=== PATIENT | male | born 1955 | race Caucasian/White ===

== ENCOUNTER 2017-11-06 10:22 | Emergency (ER) | payer MEDICARE, SELFPAY ==
[2017-11-06 10:29] VITALS: BP 146/82; PULSE 98; RESP 22; TEMP 36.5; O2SAT 97; BMI 27.1
--- NOTE | 2017-11-06 11:09 | HMH.EDEAR ---
ED Disposition Clinical Impression: Otitis media Disposition: Home, Self-Care Condition on Discharge: Good Instructions: DI for Middle Ear Infection-Adult Prescriptions: Amoxicillin [Amoxicillin 500mg Tab] 500 mg PO TID #30 tab Referrals: Provider,Referral, [Primary Care Provider] - - Critical Care Critical Care Time: No Attestation: On 11/06/17, the high probability of a clinically significant, sudden or life threatening deterioration of the following system(s) required my full and direct attention, intervention and personal management. The time I documented below is in addition to time spent performing reported procedures but includes the following listed in this critical care notation. Medical Decision Making - Medical Records Medical records reviewed: Yes: I reviewed the patient's medical records. Vital Signs: 11/06/17 10:29 Temperature 97.7 F Temperature Source Oral Pulse Rate [Right Brachial] 98 H Respiratory Rate 22 Blood Pressure [Right Arm] 146/82 Blood Pressure Mean [Right Arm] 103 Blood Pressure Source [Right Arm] Automatic Cuff Blood Pressure Position [Right Arm] Sitting 02 Sat by Pulse Oximetry 97 Oxygen Delivery Method Room Air - Lab Data Lab results reviewed: Yes: I reviewed the patient's lab results. Lab Results 11/06/17 10:40: Influenza Type A Ag Negative, Influenza Type B Ag Negative - Hussain Inquiry Pt receiving controlled substance: No Ear HPI - General Chief complaint: Ear Stated complaint: ear pain Time Seen by Provider: 11/06/17 11:15 Mode of Arrival: Ambulatory Source of Information: Patient Limitations: No Limitations Description of Symptoms (Recalled from ER Triage Doc. by RN): lt ear pain which has lead to a loss of hearing in that ear, congestion, cough - History of Present Illness HPI Narrative: has experienced intense ear fullness for the past 2 days without any vomiting. He is having difficulty hearing out of his left ear. Complaint: ear pain Location: left ear Duration: constant Severity: mild Relieving factors: nothing Exacerbating factors: position of head Discharge from ear: no Associated symptoms ear: decreased hearing Treatment prior to arrival: none - Related Data Previous Rx's Medication Instructions Recorded Amoxicillin [Amoxicillin 500mg Tab] 500 mg PO TID #30 tab 11/06/17 Allergies Allergy/AdvReac Type Severity Reaction Status Date / Time No Known Allergies Allergy Unverified 10/06/17 14:27 [facility] History Medical History: Reports:: Internal Pacemaker Denies:: Cancer, Diabetes Mellitus Type 1, MRSA Other Surgeries: Yes: Pacemaker Amputation: No - *Social History Smoking Status: Current every day smoker Tobacco Type: cigarettes Alcohol Intake: never - Psychiatric History Expresses thoughts of harming self/others: None Suicide Plan Description: No Plan ROS Obtained: Yes All systems reviewed & no additional complaints Physical Exam - General General appearance: alert, in no apparent distress - Head Head exam: atraumatic, normocephalic, normal inspection - Eye Eye exam: Present: normal appearance, PERRL, EOMI - ENT ENT exam: Present: mucous membranes moist, mucous membranes dry, normal external ear exam, other (Bulging on left. cloudy and full on right with no drainage.) - Neck Neck exam: Present: normal inspection, full ROM, trachea midline. Absent: tenderness, meningismus, lymphadenopathy - Respiratory Respiratory exam: Present: normal lung sounds bilaterally, other (Occasional dry cough). Absent: respiratory distress - Cardiovascular Cardiovascular exam: Present: regular rate, normal rhythm. Absent: JVD - Abdominal Exam Abdominal exam: Present: soft, normal bowel sounds. Absent: distention, tenderness, guarding - Extremities Exam Extremities exam: Present: full ROM - Neurological Exam Neurological exam: Present: alert, oriented X3, normal gait, other (Decreased hearing, abnorma
[2017-11-06 12:09] VITALS: BP 146/82; PULSE 94; RESP 20; TEMP 36.9; O2SAT 99
== END 2017-11-06 12:00 | disposition home or self-care (01) ==
PROVIDERS: Emergency Provider Emergency Medicine
DX: H66.92 Otitis media, unspecified, left ear (principal); F17.210 Nicotine dependence, cigarettes, uncomplicated; Z95.0 Presence of cardiac pacemaker
CPT/HCPCS: 87275; 87276; 99282

== ENCOUNTER 2018-01-11 14:48 | Emergency (ER) | payer MEDICARE, SELFPAY ==
[2018-01-11 15:02] VITALS: BP 137/81; PULSE 105; RESP 20; TEMP 36.9; O2SAT 100; BMI 27.8
--- NOTE | 2018-01-11 15:31 | HMH.EDGENADL ---
ED Disposition Clinical Impression: Otitis media Qualifiers: Otitis media type: unspecified Chronicity: acute Qualified Code(s): H66.90 - Otitis media, unspecified, unspecified ear Bilateral otitis externa Qualifiers: Otitis externa type: unspecified type Chronicity: acute Qualified Code(s): H60.503 - Unspecified acute noninfective otitis externa, bilateral BPH (benign prostatic hyperplasia) Qualifiers: Lower urinary tract symptom presence: symptoms present Lower urinary tract symptom detail: unspecified Qualified Code(s): N40.1 - Benign prostatic hyperplasia with lower urinary tract symptoms Disposition: Home, Self-Care Condition on Discharge: Good Instructions: DI for Otitis Externa, DI for Otitis Media (Middle Ear Infection)-Child Additional Instructions: Please take the medications prescribed per directions, follow-up with 1 of the ENT specialists (Jovany or Fan), as well as one of the urologists (Brendon or Jacey) within the next 1-2 days for additional evaluation. Prescriptions: Amoxicillin/Potassium Clav [Augmentin 875-125 Tablet] 1 tab PO Q12H #20 tab Neomycin/Polymyxin B/Hydrocort [Yawrkiih-Urxlwdnlf-Jr Ear Soln] 2 drops OT QID #1 solution Oxycodone HCl/Acetaminophen [Percocet 10-325 mg Tab] 1 tab PO QIDP PRN #8 tab PRN Reason: Moderate Pain Tamsulosin HCl [Flomax 0.4mg capsule] 0.4 mg PO DAILY #30 cap.er.24h Referrals: Colleen Chavira MD [Consulting Physician] - Jesus Manzo MD [Staff Physician] - Harry Olivas MD [Staff Physician] - Elijah Mari MD [Staff Physician] - Time of Disposition: 17:00 - Critical Care Critical Care Time: No Attestation: On 01/11/18, the high probability of a clinically significant, sudden or life threatening deterioration of the following system(s) required my full and direct attention, intervention and personal management. The time I documented below is in addition to time spent performing reported procedures but includes the following listed in this critical care notation. Medical Decision Making - Medical Records Medical records reviewed: Yes: I reviewed the patient's medical records. - Hussain Inquiry Pt receiving controlled substance: No Vital Signs: 01/11/18 15:02 01/11/18 17:01 01/11/18 18:22 Temperature 98.5 F 99.2 F 99.2 F Temperature Source Oral Oral Pulse Rate 93 H Pulse Rate [Right Radial] 105 H 93 H Respiratory Rate 20 20 20 Blood Pressure 141/77 Blood Pressure [Right Arm] 137/81 141/77 Blood Pressure Mean [Right Arm] 99 98 Blood Pressure Source [Right Arm] Manual Cuff/ Palpation Automatic Cuff Blood Pressure Position [Right Arm] Sitting Supine 02 Sat by Pulse Oximetry 100 98 Oxygen Delivery Method Room Air Room Air Room Air - Lab Data Lab results reviewed: Yes: I reviewed the patient's lab results. Lab Results 01/11/18 15:15: Urine Color Yellow, Urine Appearance Sl cloudy, Urine pH 6.0, Ur Specific [place] 1.015, Urine Protein Negative, Urine Glucose (UA) Negative, Urine Ketones Negative, Urine Blood Negative, Urine Nitrate Negative, Urine Bilirubin Negative, Urine Urobilinogen 1.0, Ur Leukocyte Esterase Negative, Urine WBC 5-10, Ur Squamous Epith Cells 5-10, Urine Bacteria 1+ 01/11/18 15:40: Total Creatine Kinase 51, CK-MB (CK-2) 1.0, CK-MB (CK-2) Rel Index 2.0, Troponin I < 0.02 01/11/18 15:40: WBC 12.0 H, RBC 4.28 L, Hgb 13.6 L, Hct 40.1 L, MCV 93.7, MCH 31.8 H, MCHC 33.9, RDW 12.9, Plt Count 319, MPV 8.7, Neut % (Auto) 78.0, Lymph % (Auto) 13.6, [place] % (Auto) 7.0, Eos % (Auto) 1.0, Baso % (Auto) 0.4, Neut # (Auto) 9.4 H, Lymph # (Auto) 1.6, [place] # (Auto) 0.8, Eos # (Auto) 0.1, Baso # (Auto) 0.0 01/11/18 15:40: Sodium 136, Potassium 3.7, Chloride 99, Carbon Dioxide 27, Anion Gap 13.7, BUN 25 H, Creatinine 1.17, Estimated Creat Clear 86, Estimated GFR 64, Est GFR ( Amer) 77, Glucose 119 H, Calcium 9.5, Total Bilirubin 0.6, AST 25, ALT 27, Alkaline Phosphatase 69, Total Protein 8.4 H, Albumin 3.4, Globulin 5.0 H, Albumin/Glob
[2018-01-11 16:12] LABS: Creatine Kinase 51 U/L (39-308); Troponin I < 0.02 ng/ml (0.00-0.06)
[2018-01-11 16:25] LABS: Microscopic, Urine URINE MICROSCOPIC (MICROSCOPIC)
[2018-01-11 16:26] LABS: Appearance,Urine SL CLOUDY (Clear); Bilirubin,Urine Negative (Negative); Blood, Urine Negative (Negative); Color,Urine YELLOW (Yellow); Glucose,Urine (UA) Negative (Negative); Ketones,Urine Negative (Negative); Leukocyte Esterase,Urine Negative (Negative); Nitrate,Urine Negative (Negative); Protein,Urine Negative (Negative); Specific Gravity, Urine 1.015 (1.005-1.030)
[2018-01-11 16:34] LABS: Bacteria,Urine 1+ /lpf
[2018-01-11 17:01] VITALS: BP 141/77; PULSE 93; RESP 20; TEMP 37.3; O2SAT 98
[2018-01-11 17:17] LABS: Basophils % 0.4 % (0.1-2.0); Eosinophils # 0.1 K/mm3 (0.0-0.4); Hematocrit 40.1 % (42.0-52.0); Hemoglobin 13.6 g/dL (14.1-18.0); Lymphocytes # 1.6 K/mm3 (0.7-4.5); Lymphocytes % 13.6 K/mm3 (10-50); Mean Corpuscular HGB Conc 33.9 g/dL (31.8-35.4); Mean Corpuscular Hemoglobin 31.8 pg (27.0-31.2); Mean Corpuscular Volume 93.7 fl (80-94); Mean Platelet Volume 8.7 fl (7.4-10.4); Monocytes # 0.8 K/mm3 (0.1-1.0); Neutrophils # 9.4 K/mm3 (1.8-7.8); Platelet Count 319 K/mm3 (142-424); Red Blood Count 4.28 M/mm3 (4.60-6.20); Red Cell Distribution Width 12.9 % (11.5-17.5)
[2018-01-11 17:24] LABS: Alanine Aminotransferase 27 U/L (12-78); Albumin Level 3.4 gm/dL (3.4-5.0); Albumin/Globulin Ratio 0.7 (1.1-1.8); Alkaline Phosphatase 69 U/L (46-116); Anion Gap 13.7 mEq/L (5-15); Aspartate Amino Transferase 25 U/L (15-37); Bilirubin,Total 0.6 mg/dL (0.2-1.0); Blood Urea Nitrogen 25 mg/dL (7-18); Calcium 9.5 mg/dL (8.5-10.1); Carbon Dioxide 27 mmol/L (21.0-32.0); Chloride 99 mmol/L (98-107); Creatinine Clearance Estimated 86 mL/min (0-300); Creatinine,Serum 1.17 mg/dL (0.70-1.30); Estimated Glomerular Filt Rate 64 ml/min (>60); GFR (African American) 77 ML/MIN (>60); Glucose 119 mg/dL (74-106); Potassium 3.7 mmoL/L (3.5-5.1); Sodium 136 mmol/L (136-145); Total Protein,Serum 8.4 gm/dL (6.4-8.2)
[2018-01-11 18:22] VITALS: BP 141/77; PULSE 93; RESP 20; TEMP 37.3; O2SAT 98
== END 2018-01-11 16:15 | disposition home or self-care (01) ==
PROVIDERS: Emergency Provider Emergency Medicine
DX: H60.503 Unspecified acute noninfective otitis externa, bilateral (principal); N40.1 Benign prostatic hyperplasia with lower urinary tract symptoms; Z95.0 Presence of cardiac pacemaker; F17.210 Nicotine dependence, cigarettes, uncomplicated
CPT/HCPCS: 80053; 81001; 82550; 82553; 84484; 85025; 93005; 99284

== ENCOUNTER → 2019-01-14 07:13 | Outpatient (CLI) | payer MEDICARE, SELFPAY ==
--- NOTE | 2019-01-14 07:17 | CA_ITS ---
PROCEDURE: 2-D M-mode and color Doppler study INDICATIONS FOR THE TEST: Chest pain COPDX Heart Murmur Tobacco SmokingX Palpitations Fatigue Syncope Edema Hypertension Diabetes Mellitus Rheumatic Fever SOBXDOEXObesity Hyperlipidemia Family History HD Additional History PP,CAD,PAF DEFINITY CONTRAST GIVEN PATIENT INFORMATION HEIGHT: 73 WEIGHT:182 GENDER: Male B/P:111/65 2-D/M-MODE INTERPRETATION: 2-D MEASUREMENTS OBSERVED VALUES IN CMS Right Ventricular Dimension (RVDd) 3.2 Interventricular Septum (Thickness)(IVsd) 1.2 Left Ventricular Internal Dimensions(LVIDd) 5.7 Left Ventricular Posterior Wall (Thickness)(LVPWd) 1.0 Aortic Root 3.4 Aortic Cusp Separation 1.9 Left Atrial Dimensions (LAD) 3.0 2D 1. Technically difficult study, Definity contrast was utilized to delineate endocardial surfaces. 2. Left atrium is mildly enlarged, left ventricle is normal size, mild concentric left ventricular hypertrophy, visually estimated ejection fraction of 50%, there is abnormal septal motion. 3. The right atrium and right ventricle are mildly enlarged, there is catheter noted in the right atrium and right ventricle which is likely a pacemaker lead. 4. The aortic valve is minimally thickened and fibrosed. 5. The mitral and tricuspid valve leaflets are minimally thickened . 6. The pulmonic valve is poorly visualized. 7. No significant pericardial effusion noted. DOPPLER INTERROGATION: Doppler interrogation of the aortic, mitral and tricuspid valvular presence of mild mitral and tricuspid regurgitation, tricuspid regurgitation jet velocity is inadequate for calculation of the right ventricular systolic pressure, grade 1 diastolic dysfunction seen without tissue Doppler evidence of raised left atrial pressure. CONCLUSION: 1. Technically difficult study, Definity contrast was utilized to delineate endocardial subsequent 2. Mildly enlarged left atrium, normal left ventricular size, mild concentric left ventricular hypertrophy, visually estimated ejection fraction 50% there is abnormal septal motion, grade 1 diastolic dysfunction seen without tissue Doppler evidence of raised left atrial pressure. 3. Mildly enlarged right ventricle with normal contractility. 4. Mild mitral and tricuspid regurgitation 5. No significant pericardial effusion noted.
== END ==
PROVIDERS: PCP Emergency Medicine; Visit Provider Internal Medicine
DX: E78.5 Hyperlipidemia, unspecified (principal); I11.9 Hypertensive heart disease without heart failure; I25.10 Atherosclerotic heart disease of native coronary artery without angina pectoris; I48.91 Unspecified atrial fibrillation; R06.02 Shortness of breath; Z72.0 Tobacco use; Z95.0 Presence of cardiac pacemaker
CPT/HCPCS: 93306

== ENCOUNTER → 2019-03-09 13:40 | Outpatient (CLI) | payer MEDICARE, SELFPAY ==
--- NOTE | 2019-03-09 13:47 | CT_ITS ---
CT head/brain wo/w con HISTORY: Severe posterior headaches ITS.REASON: A ORDERING PHYSICIAN: Raisa Mirza APRN PATIENT AGE: 63 years COMPARISON: 11/10/2015 TECHNIQUE: Axial images obtained without and with 100 mL's Optiray 320 contrast. Brain and bone windows reviewed. All CT scans at the facility use one or more dose reduction, viz: automated exposure control, ma/kV adjustment per patient size (including targeted exams where dose is matched to indication, i.e. head), or iterative reconstruction technique. FINDINGS: No midline shift, mass effect, intracranial hemorrhage, hydrocephalus, or extra-axial fluid collection is evident. There are scattered areas of decreased attenuation in periventricular region consistent with ischemic gliotic change from microvascular disease. No enhancing lesions are evident. Old small acute or infarction is present in the left basal ganglia as before. There is mild opacification of both mastoid sinuses and there is mucosal thickening of the ethmoid sinuses. No acute calvarial abnormality. IMPRESSION: 1. No acute intracranial findings. 2. Periventricular ischemic gliotic change with old lacunar infarction of the left basal ganglia. 3. Mastoid and paranasal sinus disease
--- NOTE | 2019-03-09 13:47 | XR_ITS ---
XR chest 2V HISTORY: Shortness of air ITS.REASON: a ORDERING PHYSICIAN: Raisa Mirza APRN PATIENT AGE: 63 years COMPARISON: 11/10/2015 FINDINGS: The cardiomediastinal silhouette and pulmonary vascularity are within normal limits. There is a bipolar pacemaker present from left subclavian approach.. The lungs are clear No acute bony abnormalities. IMPRESSION: No change with no acute finding
[2019-03-09 14:20] LABS: Blood Urea Nitrogen 16 mg/dL (7-18); Creatinine,Serum 1.01 mg/dL (0.70-1.30); Estimated Glomerular Filt Rate 75 ml/min (>60); GFR (African American) 91 ML/MIN (>60)
== END ==
PROVIDERS: PCP Emergency Medicine; Visit Provider Nurse Practitioner Family
DX: R32 Unspecified urinary incontinence (principal); I25.10 Atherosclerotic heart disease of native coronary artery without angina pectoris; Z72.0 Tobacco use
CPT/HCPCS: 36415; 70470; 71046; 82565; 84520; Q9967

== ENCOUNTER 2020-05-30 15:51 | Emergency (ER) | payer MEDICARE, OTHER, SELFPAY ==
[2020-05-30 15:53] VITALS: BP 166/77; PULSE 77; RESP 16; TEMP 36.6; O2SAT 97; BMI 34.2
--- NOTE | 2020-05-30 16:04 | XR_ITS ---
PROCEDURE: XR SHOULDER RT MIN 2V CLINICAL INDICATION: pain Right arm pain and numbness and weakness COMPARISON: CR XR SHOULDER RT MIN 2V from 05/30/2020 FINDINGS: No fracture or dislocation. No lytic or blastic change. There is normal mineralization. There are mild osteoarthritic changes of the AC joint and glenohumeral joint. A small focus of calcification is present along the greater tuberosity consistent with calcific tendinitis with some minimal sclerosis of the greater tuberosity. No subacromial stenosis. There is a thin curvilinear lucency at the greater this extruded recall which could be due to a nondisplaced fracture or osteochondral defect. The mid distal aspect of the humerus have an unremarkable appearance. There is a small density within the soft tissues along the lateral aspect of the arm at 2 mm Other findings:None. 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
--- NOTE | 2020-05-30 16:10 | XR_ITS ---
PROCEDURE: XR CHEST 2V CLINICAL HISTORY: right arm weakness, brachial plexus/ mass? COMPARISON: CR CXR CHEST(2 VIEWS-NOT PORTABLE) from 06/07/2014 CR CXR1 CHEST-PORTABLE from 11/10/2015 FINDINGS: There is borderline cardiomegaly without failure. Bipolar pacemaker is present from left subclavian approach. Coronary artery calcifications are present. The lungs are clear without infiltrates, suspicious nodules, or pleural effusions. No acute bony abnormalities. IMPRESSION: Cardiomegaly with coronary artery disease Dictated b Anthony De Los Santos MD 05/30/2020 16:41 Anthony De Los Santos MD in [facility] 05/30/2020 16:41
--- NOTE | 2020-05-30 16:14 | HMH.EDGENADL ---
ED Disposition Clinical Impression: Right arm weakness Neuropraxia of right upper extremity Qualifiers: Encounter type: initial encounter Qualified Code(s): S44.91XA - Injury of unspecified nerve at shoulder and upper arm level, right arm, initial encounter Muscle wasting Qualifiers: Muscle atrophy area: upper arm Laterality: right Qualified Code(s): M62.521 - Muscle wasting and atrophy, not elsewhere classified, right upper arm Disposition: Home, Self-Care Condition on Discharge: Fair Instructions: DI for Peripheral Neuropathy Additional Instructions: You have been evaluated for weakness and nerve pain in your right arm. It is very important to follow-up with your primary care doctor. You may need to have an EMG, muscle electrical study or MRI of your spine. Please return to the emergency department if you have any new or worsening symptoms. Referrals: Tarun Barrera MD [Primary Care Provider] - Time of Disposition: 18:22 - Critical Care Critical Care Time: No Attestation: On 05/30/20, the high probability of a clinically significant, sudden or life threatening deterioration of the following system(s) required my full and direct attention, intervention and personal management. The time I documented below is in addition to time spent performing reported procedures but includes the following listed in this critical care notation. Medical Decision Making - Medical Records Medical records reviewed: Yes: I reviewed the patient's medical records. - Hussain Inquiry Pt receiving controlled substance: No Vital Signs: 05/30/20 15:53 05/30/20 17:18 05/30/20 18:27 Temperature 98 F 98 F Temperature Source Oral Oral Pulse Rate 70 Pulse Rate [Right Radial] 77 78 Respiratory Rate 16 16 16 Blood Pressure 157/85 H Blood Pressure [Right Arm] 166/77 H 165/70 H Blood Pressure Mean [Right Arm] 106 101 Blood Pressure Source Automatic Cuff Blood Pressure Source [Right Arm] Automatic Cuff Automatic Cuff Blood Pressure Position Sitting Blood Pressure Position [Right Arm] Supine Sitting 02 Sat by Pulse Oximetry 97 Oxygen Delivery Method Room Air Room Air - Lab Data Lab Results 05/30/20 16:39: WBC 12.1 H, RBC 4.02 L, Hgb 12.6 L, Hct 38.8 L, MCV 96.6 H, MCH 31.5 H, MCHC 32.6, RDW 14.8, Plt Count 223, MPV 8.4, Neut % (Auto) 76.3, Lymph % (Auto) 15.2, [place] % (Auto) 5.0, Eos % (Auto) 2.9, Baso % (Auto) 0.6, Neut # (Auto) 9.2 H, Lymph # (Auto) 1.8, [place] # (Auto) 0.6, Eos # (Auto) 0.4, Baso # (Auto) 0.1 05/30/20 16:39: Sodium 140, Potassium 4.8, Chloride 105, Carbon Dioxide 29, Anion Gap 10.8, BUN 18, Creatinine 0.90, Estimated Creat Clear 120, Estimated GFR 86, Est GFR ( Amer) 103, Glucose 101 H, Calcium 9.8, Total Bilirubin 0.6, AST 28, ALT 19, Alkaline Phosphatase 64, Total Creatine Kinase 115, Total Protein 7.2, Albumin 4.3, Globulin 2.9, Albumin/Globulin Ratio 1.5 Result diagrams: 05/30/20 16:39 05/30/20 16:39 Orders (Tests/Meds): ED MEDICATIONS Discontinued Medications Generic Name Dose Route Start Last Admin Trade Name Freq PRN Reason Stop Dose Admin Hydromorphone HCl 0.5 mg 05/30/20 19:07 05/30/20 17:45 Dilaudid 2mg/Ml Syringe IV 05/30/20 19:08 0.5 mg ONCE ONE Administration Ibuprofen 400 mg 05/30/20 16:25 05/30/20 16:44 Motrin 400mg Tablet PO 05/30/20 16:26 Not Given ONCE ONE Ketorolac Tromethamine 30 mg 05/30/20 16:45 05/30/20 16:46 Toradol 30mg/Ml Vial IV 05/30/20 16:46 30 mg ONCE ONE Administration ORDERS Category Date Time Status CT chest wo con Stat Cat Scan 05/30/20 16:41 Taken Humerus XR right [XR humerus RT] Stat Exams 05/30/20 16:04 Taken Medical Decision Narrative: In summary this is a 64-year-old male presenting to the emergency department with pain, tingling, weakness in his right upper extremity. Patient is overall appearing on arrival. Vital signs are stable. Presentation is most consistent with a peripheral n
--- NOTE | 2020-05-30 16:41 | CT_ITS ---
PROCEDURE: CT CHEST WO CON CLINICAL INDICATION: right shoulder pain, arm weakness Chest pain COMPARISON: No exams were available for comparison TECHNIQUE: Axial images obtained with sagittal and coronal reformats. All CT scans at the facility use one or more dose reduction, viz: automated exposure control, ma/kV adjustment per patient size (including targeted exams where dose is matched to indication, i.e. head), or iterative reconstruction technique. FINDINGS: Extensive coronary artery calcification and/or stents noted with mild prominence of the cardiac silhouette. Cardiac pacemaker device is present. No mediastinal or hilar mass or adenopathy. COPD with mild centrilobular emphysema. Scattered areas of scarring. Mild bronchial thickening. No lobar consolidation or collapse. There are degenerative changes in the thoracic spine. There is an old right 3rd rib fracture. Nonobstructing stone is present in the upper pole left kidney at 4 mm incompletely imaged the IMPRESSION: 1. No acute finding. 2. Severe coronary artery disease with calcification and/or stents of the coronary arteries 3. COPD with centrilobular emphysema 4. Left nephrolithiasis Dictated b Anthony De Los Santos MD 05/31/2020 09:52 Anthony De Los Santos MD in [place] 05/31/2020 09:52
[2020-05-30 16:51] LABS: Basophils # 0.1 K/mm3 (0-0.2); Basophils % 0.6 % (0.1-2.0); Eosinophils # 0.4 K/mm3 (0.0-0.4); Eosinophils % 2.9 % (0.1-12.0); Hematocrit 38.8 % (42.0-52.0); Hemoglobin 12.6 g/dL (14.1-18.0); Lymphocytes # 1.8 K/mm3 (0.7-4.5); Lymphocytes % 15.2 % (10-50); Mean Corpuscular HGB Conc 32.6 g/dL (31.8-35.4); Mean Corpuscular Hemoglobin 31.5 pg (27.0-31.2); Mean Corpuscular Volume 96.6 fl (80-94); Mean Platelet Volume 8.4 fl (7.4-10.4); Monocytes # 0.6 K/mm3 (0.1-1.0); Neutrophils # 9.2 K/mm3 (1.8-7.8); Neutrophils % 76.3 % (37.0-80.0); Platelet Count 223 K/mm3 (142-424); Red Blood Count 4.02 M/mm3 (4.60-6.20); Red Cell Distribution Width 14.8 % (11.5-17.5); White Blood Count 12.1 K/mm3 (4.8-10.8)
[2020-05-30 16:55] LABS: Chloride 105 mmol/L (98-107); Potassium 4.8 mmoL/L (3.5-5.1); Sodium 140 mmol/L (136-145)
[2020-05-30 16:58] LABS: Alanine Aminotransferase 19 U/L (12-78); Albumin Level 4.3 g/dl (3.5-5.0); Albumin/Globulin Ratio 1.5 (1.1-1.8); Alkaline Phosphatase 64 U/L (38-126); Anion Gap 10.8 mEq/L (5-15); Aspartate Amino Transferase 28 U/L (17-59); Bilirubin,Total 0.6 mg/dl (0.2-1.3); Blood Urea Nitrogen 18 mg/dl (9-20); Calcium 9.8 mg/dl (8.4-10.2); Carbon Dioxide 29 mmol/L (22.0-30.0); Creatine Kinase 115 U/L (55-170); Creatinine Clearance Estimated 120 mL/min (50-200); Estimated Glomerular Filt Rate 86 ml/min (>60); GFR (African American) 103 ML/MIN (>60); Globulin 2.9 g/dL (1.3-3.2); Glucose 101 mg/dl (74-100); Total Protein,Serum 7.2 g/dl (6.3-8.2)
[2020-05-30 17:18] VITALS: BP 165/70; PULSE 78; RESP 16
[2020-05-30 18:27] VITALS: BP 157/85; PULSE 70; RESP 16; TEMP 36.6; O2SAT 98
== END 2020-05-30 18:31 | disposition home or self-care (01) ==
PROVIDERS: Emergency Provider Emergency Medicine; PCP Emergency Medicine
DX: S44.91XA Injury of unspecified nerve at shoulder and upper arm level, right arm, initial encounter (principal); M62.521 Muscle wasting and atrophy, not elsewhere classified, right upper arm; Z95.0 Presence of cardiac pacemaker; I10 Essential (primary) hypertension; E78.5 Hyperlipidemia, unspecified; F17.210 Nicotine dependence, cigarettes, uncomplicated; Z79.899 Other long term (current) drug therapy
CPT/HCPCS: 71046; 71250; 73030; 73060; 80053; 82550; 85025; 96374; 96375; 99283

== ENCOUNTER 2021-10-10 09:27 | Emergency (ER) | payer MEDICARE, MEDICAID, SELFPAY ==
[2021-10-10 10:42] VITALS: BP 150/88; PULSE 69; RESP 20; TEMP 36.6; O2SAT 98; BMI 25.7
[2021-10-10 10:57] LABS: Apearance,Urine Turbid (Clear); Bilirubin,Urine Negative (Negative); Blood, Urine Negative (Negative); Color,Urine Dark Yellow (Yellow); Glucose,Urine (UA) Negative (Negative); Ketones,Urine Negative (Negative); Protein,Urine Trace (Negative); Specific Gravity, Urine 1.025 (1.005-1.030); UTC Leukocyte Esterase,Urine Negative (Negative); UTC Nitrate,Urine Positive (Negative); Urobilinogen,Urine 2 EU/dl (0.2)
--- NOTE | 2021-10-10 11:01 | HMH.EDUTC ---
[facility] [place] Clinical Impression: UTI (urinary tract infection) Qualifiers: Urinary tract infection type: site unspecified Hematuria presence: with hematuria Qualified Code(s): N39.0 - Urinary tract infection, site not specified Disposition: Home, Self-Care Condition on Discharge: Good Instructions: Urine Culture, DI for Urinary Tract Infection (UTI), Ceftriaxone Injection Additional Instructions: Drink plenty of fluids. Take tylenol for pain or fever. Take the medications as directed. Follow up with your regular doctor. GO TO THE ER FOR ANY WORSENING SYMPTOMS Make sure you drink plenty of fluids. Water is best, of course. Try to drink a couple glasses of cranberry juice very day for the next couple of week at least also. The urine culture takes 3 days to complete. This test will tell the type of bacteria causing your infection and the best antibiotics to treat it with. Rarely, the first antibiotic that we start doesn't treat it well, so make sure you follow up or call your primary care physician in 3 days if you're not doing better. If you start running a high fever or if you are unable to hold the antibiotics down due to vomiting please return and got through the ER. You might need something IV to treat this infection if that starts happening. The promethazine (phenergran) is just in case you start to have nausea/vomiting from the antibiotics. You need to be holding down then antibiotics and vomting it up so it can work to get you bettter, so take this if you have nausea/vomiting. I will make you drowsy, so don't drive or operate heavy machinery after taking it. Follow up with Dr. Barrera once you are finished with the antibiotics even if you are better so your urine can be rechecked. Infection can get in your prostate and keep reoccurring if we don't make sure it's completely eradicated. Prescriptions: Sulfamethoxazole/Trimethoprim [Bactrim DS tablet] 1 each PO BID 14 Days #28 tab Transmission Status: Received by [facility] Promethazine HCl [Phenergan 25mg tab] 25 mg PO Q6H PRN #12 tab PRN Reason: Nausea And Vomiting Transmission Status: Received by [facility] Referrals: Tarun Barrera MD [Primary Care Provider] - Time of Disposition: 11:29 Medical Decision Making - Medical Records Medical records reviewed: No: I reviewed the patient's medical records. - Hussain Inquiry Pt receiving controlled substance: No Vital Signs: 10/10/21 10:42 10/10/21 12:13 Temperature 97.8 F 97.8 F Temperature Source Oral Pulse Rate 69 Pulse Rate [Left] 69 Respiratory Rate 20 20 Blood Pressure 150/88 H Blood Pressure [Right Arm] 150/88 H Blood Pressure Mean [Right Arm] 108 02 Sat by Pulse Oximetry 98 - Lab Data Lab results reviewed: Yes: I reviewed the patient's lab results. Lab Results 10/10/21 10:46: Urine Color Dark yellow, Urine Appearance Turbid, Urine pH 7.0, Ur Specific [place] 1.025, Urine Protein Trace, Urine Glucose (UA) Negative, Urine Ketones Negative, Urine Blood Negative, Urine Nitrate Positive A, Urine Bilirubin Negative, Urine Urobilinogen 2, Ur Leukocyte Esterase Negative Orders (Tests/Meds): ED MEDICATIONS Discontinued Medications Generic Name Dose Route Start Last Admin Trade Name Boyd PRN Reason Stop Dose Admin Ceftriaxone Sodium 1 gm 10/10/21 11:20 10/10/21 11:38 Ceftriaxone 1gm Vial IM 10/10/21 11:21 1 gm ONCE ONE Administration Lidocaine HCl 0 ml 10/10/21 11:20 10/10/21 11:38 Lidocaine 1% 5ml Pf Vial IM 10/10/21 11:21 2 ml ONCE ONE Administration ORDERS Category Date Time Status Urine Culture Stat Micro 10/10/21 10:46 Results [facility] [place] HPI - General Stated complaint: trouble urinating Time Seen by Provider: 10/10/21 11:12 Mode of Arrival: Ambulatory Source of Information: Patient Limitations: No Limitations Description of Symptoms (Recalled from Triage Doc. by
[2021-10-10 12:13] VITALS: BP 150/88; PULSE 69; RESP 20; TEMP 36.6
== END 2021-10-10 12:13 | disposition home or self-care (01) ==
PROVIDERS: Emergency Provider Nurse Practitioner Family; PCP Emergency Medicine
DX: N30.00 Acute cystitis without hematuria (principal); Z87.442 Personal history of urinary calculi; F17.210 Nicotine dependence, cigarettes, uncomplicated
CPT/HCPCS: G0463; 81003; 87086; 87088; 87186; 96372; 99202

== ENCOUNTER → 2022-09-29 14:35 | Outpatient (CLI) | payer MEDICARE, SELFPAY | LOC: LAB.DROPOF 14:37 | PROVIDERS: PCP Emergency Medicine; Visit Provider Emergency Medicine | DX: R82.90 Unspecified abnormal findings in urine (principal); B96.29 Other Escherichia coli [E. coli] as the cause of diseases classified elsewhere | CPT/HCPCS: 87086; 87088; 87186 ==

== ENCOUNTER 2023-07-23 08:32 | Day surgery (SDC) | payer MEDICARE, SELFPAY ==
--- NOTE | 2023-07-23 | IR_ITS ---
APPROVED REPORT Patient Location: Outpatient Housekeeping Worker: JULIO C Cyr RT (R) PROCEDURES Pocket Revision Removal of old Pacemaker Implant of Permanent Pacemaker INDICATION End of Battery Life Informed consent was obtained prior to the procedure. COMPLICATIONS None Estimated Blood Loss: Less than 10 mls TECHNIQUE 1% lidocaine with epinephrine used to anesthetize the left anterior aspect of the chest. Scalpel was used to make the initial cutaneous incision and then used to dissect down to the existing pacemaker generator. The generator was removed from the existing pocket. Digital manipulation was required along with intermittent usage of scalpel in order to revise the pocket. The leads were removed from the old generator. The new generator was screwed to the existing leads and secured into place. Electronic interrogation proved acceptable thresholds and voltage within the lead. Antibiotics were used to flush the pocket and the pacemaker was secured using 3-0 silk into the newly revised pocket. Monocryl was used to close the subcutaneous tissue and then milena were placed on the cutaneous area in order to approximate the incision. Patient was transferred to the postop holding area in stable condition. INTERROGATION Explanted Generator Model number: [id number] Explanted Generator Serial number: [id number] Implanted Generator Model number: [id number] Implanted Generator Serial number: [id number] Atrial lead model number: 2088TC/52 Atrial lead serial number: [id number] P-wave: 1.7mV Impedence: 400 ohms Threshold: 0.75V@0.4ms Right Ventricular lead model number: 1948/58 Right Ventricular lead serial number: [id number] R-wave: not performed Impedence: 680 ohms Threshold: 0.5V@0.4ms Pacing Parameters: Mode: DDDR Base/Max Track:60 ppm / 130 ppm No diaphragmatic stimulation at 10 volts. IMPRESSION Successful Pocket Revision Successful Removal of old Pacemaker Successful Implant of Permanent Pacemaker PLAN 1. post op wound care Electronically signed by : Suresh Smith MD 07/23/2023 15:28:19
--- NOTE | 2023-07-23 08:39 | CA_ITS ---
APPROVED REPORT EXAM: Comprehensive 2D, Doppler, and color-flow Echocardiogram Territory Account Executive: Sera Penny RDCS Ht: 6 ft 0 in Wt: 205lbs BSA: 2.15 BP: 134/58 mmHg Indications: CAD PP AF TDS COPD 2D Dimensions LVOT 2.16 cm (M/F) 1.5-2.5 M-Mode Dimensions RVDd 2.50 cm (0.9-2.6) LA Diam 3.81 cm (1.9-4.0) LVDd 5.68 cm (3.5-5.7) Ao Diam 3.54 cm (2.0-3.7) LVDs 4.43 cm (3.5-5.7) IVSd 1.02 cm (0.6-1.1) PWd 0.99 cm (0.6-1.1) EF (Teich) 43.90% EPSs 3.62 cm FS 22.00% EDV (Teich) 158.80 mL ESV (Teich) 89.10 mL LV Diastology E Decel Time 280.00 (160-240 msec) E/A Ratio 0.6 MED E' 3.90 (< 7 cm/sec) E'/MED E' Ratio 11.18 (>14) LAT E' 3.90 (<10 cm/sec) E/LAT E' Ratio 11.18 (>14) Mitral Valve MV E Max Chivo. 44.00 (40-130 cm/s) MV A Velocity 78.00 (40-130 cm/s) E/A Ratio 0.56 MV Decel. Time 280.00 (160-240 ms) MV PHT 82.00 ms Left Ventricle The left ventricle is normal size. Left ventricular systolic function is moderately decreased. There is increased LV wall thickness (IVSd=1.4-1.5 cm). There is no LVOT gradient at rest. The septum is asynchronous. There is grade I diastolic dysfunction present. The LVEF is difficult to estimate due to poor visualization of the endocardial borders and due to asynchronous septum, but grossly LVEF is approximately 35%. Right Ventricle The right ventricle is normal size. The right ventricular systolic function is normal. There is a device lead present in the right ventricle. Atria The left atrium size is normal. The right atrium size is normal. The interatrial septum is not well visualized. Aortic Valve The aortic valve opens well. There is no aortic valvular stenosis. Trace aortic regurgitation. Mitral Valve The mitral valve is normal in structure. There is no systolic anterior motion (RIGOBERTO) of the mitral valve. No evidence of mitral valve stenosis. Trace mitral regurgitation. Tricuspid Valve The tricuspid valve leaflets are thin and pliable. Trace tricuspid regurgitation. There is insufficient TR jet to estimate RVSP. Pulmonic Valve The pulmonary valve is normal in structure. Trace pulmonic regurgitation. Great Vessels The aortic root is normal in size. The ascending aorta is normal in size. IVC is normal in size and collapses >50% with inspiration. Pericardium There is no pericardial effusion. Other Information Study Quality: Fair Conclusion Moderate reduction in LV systolic function. The LVEF is difficult to estimate due to poor visualization of the endocardial borders and due to asynchronous septum, but grossly LVEF is approximately 35%. There is increased LV wall thickness (IVSd=1.4-1.5 cm). There is no LVOT gradient at rest. No significant valvular stenosis or regurgitation. Due to difficult LVEF estimation and increased IVSd thickness (approximately 1.5 cm), further evaluation with cardiac MRI (HCM protocol) is recommended. Electronically signed by : Georgina Cuevas MD 07/25/2023 19:54:42
[2023-07-23 09:09] VITALS: BMI 27.8
[2023-07-23 10:20] VITALS: BP 156/96; PULSE 59; RESP 18; TEMP 36.6; O2SAT 97; BMI 27.7
[2023-07-23 10:22] LABS: Chloride 105 mmol/L (98-107)
[2023-07-23 10:23] LABS: Potassium 4.7 mmoL/L (3.5-5.1); Sodium 139 mmol/L (136-145)
[2023-07-23 10:24] LABS: Basophils % 0.6 % (0.1-2.0); Eosinophils # 0.2 K/mm3 (0.0-0.4); Eosinophils % 2.6 % (0.1-12.0); Hematocrit 51.1 % (42.0-52.0); Hemoglobin 15.9 g/dL (14.1-18.0); Lymphocytes # 1.7 K/mm3 (0.7-4.5); Lymphocytes % 22.4 % (10-50); Mean Corpuscular HGB Conc 31.2 g/dL (31.8-35.4); Mean Corpuscular Hemoglobin 29.8 pg (27.0-31.2); Mean Corpuscular Volume 95.5 fl (80-94); Mean Platelet Volume 9.1 fl (7.4-10.4); Monocytes # 0.4 K/mm3 (0.1-1.0); Monocytes % 5.6 % (1.7-9.3); Neutrophils # 5.3 K/mm3 (1.8-7.8); Neutrophils % 68.8 % (37.0-80.0); Platelet Count 182 K/mm3 (142-424); Red Blood Count 5.35 M/mm3 (4.60-6.20); Red Cell Distribution Width 13.8 % (11.5-17.5); White Blood Count 7.6 K/mm3 (4.8-10.8)
[2023-07-23 10:26] LABS: Anion Gap 10.7 mEq/L (5-15); Blood Urea Nitrogen 28 mg/dl (9-20); Calcium 9.3 mg/dl (8.4-10.2); Carbon Dioxide 28 mmol/L (22.0-30.0); Creatinine Clearance Estimated 88 mL/min (50-200); Estimated Glomerular Filt Rate 67 ml/min (>60); GFR (African American) 81 ML/MIN (>60); Glucose 104 mg/dl (74-100)
[2023-07-23] MEDS: CEFAZOLIN 1GM VIAL 1 GM TP (13:35)
[2023-07-23] MEDS: CEFAZOLIN SODIUM 1 GM in 0.9 % SODIUM CHLORIDE 50 ML IV (13:35)
[2023-07-23] MEDS: 0.9 % SODIUM CHLORIDE 1000ML 1,000 ML 25 ML IV (13:35)
[2023-07-23] MEDS: PROPOFOL 10MG/ML 20ML VIAL 160 MG IV (13:36)
[2023-07-23] MEDS: diphenhydrAMINE 50MG/ML VIAL 50 MG IV (13:36)
[2023-07-23] MEDS: LIDOCAINE 1% W/EPI 1:100,000 20ML VIAL 20 ML SQ (13:36)
[2023-07-23] MEDS: FENTANYL 100MCG/2ML VIAL 25 MCG IV (13:37)
[2023-07-23] MEDS: MIDAZOLAM 2MG/2ML VIAL 1 MG IV (13:37)
[2023-07-23 13:42] VITALS: PULSE 66; RESP 15; TEMP 36.6; O2SAT 99
[2023-07-23 13:55] VITALS: BP 163/83; PULSE 66; RESP 16; O2SAT 99
[2023-07-23 14:10] VITALS: BP 173/104; PULSE 67; RESP 16; O2SAT 97
[2023-07-23 14:49] VITALS: BP 156/96; PULSE 60; RESP 20; O2SAT 96
== END 2023-07-23 14:51 | disposition home or self-care (01) ==
PROVIDERS: PCP Emergency Medicine; Visit Provider Internal Medicine
DX: Z45.010 Encounter for checking and testing of cardiac pacemaker pulse generator [battery]; I11.9 Hypertensive heart disease without heart failure; I48.0 Paroxysmal atrial fibrillation; E78.5 Hyperlipidemia, unspecified; I25.10 Atherosclerotic heart disease of native coronary artery without angina pectoris; R06.02 Shortness of breath; F17.210 Nicotine dependence, cigarettes, uncomplicated; Z79.899 Other long term (current) drug therapy
CPT/HCPCS: 33228; 36415; 80048; 85025; 93306; 99152; C1785

== ENCOUNTER → 2023-08-05 17:02 | Outpatient (CLI) | payer MEDICARE, SELFPAY ==
[2023-08-05 15:23] LABS: Barbiturates Screen,Urine Negative ng/ml (<200)
[2023-08-05 15:24] LABS: Amphetamine/Metha Screen,Urine Negative ng/ml (<1000)
[2023-08-05 15:25] LABS: Benzodiazepines Screen,Urine Negative ng/ml (<200); Cannabinoid Screen,Urine Negative ng/ml (<50)
[2023-08-05 15:26] LABS: Methadone Screen,Urine Negative ng/ml (<300)
[2023-08-05 15:27] LABS: Cocaine Screen,Urine Negative ng/ml (<300); Phencyclidine Screen,Urine Negative ng/ml (<25)
[2023-08-05 15:28] LABS: Opiate Screen,Urine Negative ng/ml (<300)
== END ==
PROVIDERS: PCP Emergency Medicine; Visit Provider Emergency Medicine
DX: Z79.899 Other long term (current) drug therapy (principal)
CPT/HCPCS: 80305

== ENCOUNTER 2023-09-09 09:42 | Day surgery (SDC) | payer MEDICARE, SELFPAY ==
[2023-09-09] VITALS (7 sets, daily range): BP systolic 138–183; BP diastolic 79–97; PULSE 67–70; RESP 20; O2SAT 90–100; BMI 28.8
--- NOTE | 2023-09-09 | IR_ITS ---
APPROVED REPORT Patient Location: Outpatient Managing Director Atlas: JULIO C Cyr RT (R) PROCEDURES 1. Pocket Revision 2. Placement of right ventricular sensing pacing and shocking lead in the right ventricular apex. 3. Placement of left ventricular sensing pacing lead via the coronary sinus. 4. Permanent cardiac resynchronization therapy with ICD implantation/biventricular pacemaker. 5. Capping of chronic sensing and pacing right ventricular lead. INDICATION Systolic Congestive Heart Failure, ejection <35%, Wide QRS >120ms, [place] Heart Assoication Class 3 Congestive Heart Failure Informed consent was obtained prior to the procedure. COMPLICATIONS None Estimated Blood Loss: Less than 10 mls TECHNIQUE 1% Lidocaine with epinephrine used to anesthetized the left anterior aspect of the chest. Scalpel was used to make the initial cutaneous incision and to dissect down tinto the fascia. The original pacemaker generator was removed from the pocket and pocket revised for new implant of defibrillator. The patient was then placed in Trendelenburg position and the subclavian vein was accessed 2 times via the Selinger technique. A 8 Chinese sheath was placed under fluoroscopic guidance into the subclavian vein. The dilator was removed from the sheath. Using fluoroscopic guidance, the ventricular lead was placed into the right ventricular apex, screwed and secured into place. Electronic interrogation proved acceptable thresholds and voltage within the lead. Using 3-0 silk, the ventricular lead was then secured into place and sheath peeled away. Following this, a 10 Chinese sheath and dilator was then placed over one of the wires while keeping the other wire in place within the subclavian vein. The dilator was removed from the sheath. Using fluoroscopic guidance, contrast was used to visualize the coronary sinus, the left ventricular lead was placed into the coronary sinus. Electronic interrogation proved acceptable thresholds and voltage within the lead. Using 3-0 silk, the left ventricular lead was then secured into place and sheath peeled away. 1 gram of Ancef was used to flush the pocket. Both shocking leads were connected to [employer]-D generator and tested via computer. The chronic RV lead was capped and the existing RA lead was attached to the new defibrillator, The defibrillator then secured to the fascia. Monocryl was used to close the subcutaneous layers while milena were used to close the cutaneous layer. A pressure dressing was placed and the patient was transferred to the postop holding area in stable condition for postoperative care. INTERROGATION Implanted Generator Model number: [id number] Implanted Generator Serial number: [id number] Explanted Generator Model number: [id number] Explanted Generator Serial number: [id number] Capped RV Lead model number: [id number] Capped RV Lead serial number: [id number] Atrial lead model number: [id number] Atrial lead serial number: [id number] P-wave: 1.4mV Impedence: 440 ohms Threshold: 0.75V@0.5ms Right Ventricular lead model number: [id number]/58 Right Ventricular lead serial number: [id number] Impedence: 760 ohms Threshold: 0.75V@0.5ms Left Ventricular lead model number: 1458/86 Left Ventricular lead serial number: [id number] Impedence: 700 ohms Threshold: 0.75V@1.0ms Pacing Parameters: Mode: DDDR Base/Max Track: 70 ppm / 130 ppm VT-1: 150 bpm, monitor VT-2: 181 bpm, ATP x2, 36J, 40J, 40J x4 VF: 214 bpm, ATP x1, 36J, 40J, 40J x4 No diaphragmatic stimulation at 10 volts. IMPRESSION 1. Successful Pocket Revision 2. Successful Placement of right ventricular sensing pacing and shocking lead in the right ventricular apex. 3. Successful Placement of left ventricular sensing pacing lead via th
[2023-09-09 10:23] LABS: Chloride 104 mmol/L (98-107); Potassium 4.7 mmoL/L (3.5-5.1); Sodium 138 mmol/L (136-145)
[2023-09-09 10:26] LABS: Anion Gap 10.7 mEq/L (5-15); Blood Urea Nitrogen 31 mg/dl (9-20); Calcium 8.7 mg/dl (8.4-10.2); Carbon Dioxide 28 mmol/L (22.0-30.0); Creatinine Clearance Estimated 91 mL/min (50-200); Estimated Glomerular Filt Rate 67 ml/min (>60); GFR (African American) 81 ML/MIN (>60); Glucose 106 mg/dl (74-100)
[2023-09-09 10:37] LABS: Basophils # 0.1 K/mm3 (0-0.2); Basophils % 0.8 % (0.1-2.0); Eosinophils # 0.2 K/mm3 (0.0-0.4); Eosinophils % 2.5 % (0.1-12.0); Hematocrit 42.6 % (42.0-52.0); Hemoglobin 14.4 g/dL (14.1-18.0); Lymphocytes # 1.9 K/mm3 (0.7-4.5); Lymphocytes % 20.7 % (10-50); Mean Corpuscular HGB Conc 33.7 g/dL (31.8-35.4); Mean Corpuscular Hemoglobin 32.5 pg (27.0-31.2); Mean Corpuscular Volume 96.4 fl (80-94); Mean Platelet Volume 8.8 fl (7.4-10.4); Monocytes # 0.5 K/mm3 (0.1-1.0); Monocytes % 5.5 % (1.7-9.3); Neutrophils # 6.5 K/mm3 (1.8-7.8); Neutrophils % 70.5 % (37.0-80.0); Platelet Count 205 K/mm3 (142-424); Red Blood Count 4.42 M/mm3 (4.60-6.20); Red Cell Distribution Width 14.4 % (11.5-17.5); White Blood Count 9.3 K/mm3 (4.8-10.8)
--- NOTE | 2023-09-09 13:19 | XR_ITS ---
FINAL REPORT CLINICAL HISTORY: Confirm pacemaker/AID placement COMPARISON: None FINDINGS: SINGLE VIEW CHEST Cardiomegaly is noted along with pulmonary vascular congestion. A pacer is noted. There are bibasilar opacities present, favor atelectasis over pneumonia. The bony thorax is intact. No pneumothorax is visualized. IMPRESSION: Cardiomegaly and pulmonary vascular congestion. Bibasilar opacities present, favor atelectasis over pneumonia. Reviewed, Interpreted and Dictated by Cristobal Gonsalez III, MD Transcribed by Briana Ortega Authenticated and [facility]
== END 2023-09-09 15:08 | disposition home or self-care (01) ==
LOC: CATHLAB 09:42
PROVIDERS: PCP Emergency Medicine; Visit Provider Internal Medicine
PROC: 0JH609Z Insertion of Cardiac Resynchronization Defibrillator Pulse Generator into Chest Subcutaneous Tissue and Fascia, Open Approach (ICD-10-PCS; CPT 33249; principal; 2023-09-09 08:00)
DX: I42.7 Cardiomyopathy due to drug and external agent (principal); F17.210 Nicotine dependence, cigarettes, uncomplicated; I25.10 Atherosclerotic heart disease of native coronary artery without angina pectoris; I70.213 Atherosclerosis of native arteries of extremities with intermittent claudication, bilateral legs; I77.1 Stricture of artery; I48.0 Paroxysmal atrial fibrillation; I11.9 Hypertensive heart disease without heart failure; E78.5 Hyperlipidemia, unspecified; Z79.899 Other long term (current) drug therapy; Z45.02 Encounter for adjustment and management of automatic implantable cardiac defibrillator
CPT/HCPCS: 33225; 33264; 71045; 80048; 85025; 99152; 99153; C1769; C1882; C1895; C1900; Q9967

== ENCOUNTER → 2023-09-25 08:53 | Outpatient (CLI) | payer MEDICARE, SELFPAY ==
--- NOTE | 2023-09-25 | CA_ITS ---
APPROVED REPORT EXAM: Limited 2D Echocardiogram with contrast Rail Walker: Juana Gerard CRT Ht: 6 ft 0 in Wt: 217lbs BSA: 2.21 BP: 145/73 mmHg Indications: EF CHECK W DEFINITY Echo Enhancing Agent Indication: Endocardial border delineation Agent(s) / Amount(s) Used: Definity 2 cc Conclusion This is a limited TTE to evaluate for LVEF. Limited windows were obtained. Ultrasound enhancing agent was administered. The left ventricle is mildly dilated. There is increased LV wall thickness. There is global severe hypokinesis present. The inferior and inferoseptal LV blake appear akinetic. LVEF is 20%. Ultrasound enhancing agent administration demonstrates no evidence of LV thrombus. Electronically signed by : Georgina Cuevas MD 09/26/2023 00:39:39
== END ==
LOC: RT 08:53
PROVIDERS: PCP Emergency Medicine; Visit Provider Internal Medicine
DX: I48.0 Paroxysmal atrial fibrillation (principal); I42.8 Other cardiomyopathies
CPT/HCPCS: 93308; Q9957

== ENCOUNTER 2023-10-26 15:33 | Outpatient (CLI) | payer MEDICARE, SELFPAY ==
[2023-10-26 13:24] LABS: Creatinine,Urine Random 45 mg/dL (Not Estab.)
[2023-10-26 13:42] LABS: Amphetamine/Metha Screen,Urine Negative ng/ml (<1000); Barbiturates Screen,Urine Negative ng/ml (<200); Benzodiazepines Screen,Urine Negative ng/ml (<200); Cannabinoid Screen,Urine Negative ng/ml (<50); Cocaine Screen,Urine Negative ng/ml (<300); Methadone Screen,Urine Negative ng/ml (<300); Opiate Screen,Urine Negative ng/ml (<300); Phencyclidine Screen,Urine Negative ng/ml (<25)
[2023-10-26 13:55] LABS: Chol/HDL Ratio 9.4 (1-3.5); Cholesterol 206 mg/dl (140-200); HDL Cholesterol 22 mg/dl (40-60); Triglycerides 268 mg/dl (30-150); VLDL Cholesterol 54 mg/dL (0-40)
[2023-10-26 14:05] LABS: Direct LDL Cholesterol 124.48 mg/dL (100-129)
[2023-10-26 14:09] LABS: Microalbumin/Creatinine Ratio 122.6
[2023-10-26 14:22] LABS: Hemoglobin A1C 5.7 % (4.0-6.0)
[2023-10-26 14:24] LABS: Thyroid Stimulating Hormone 2.05 uIU/mL (0.465-4.68)
== END 2023-10-26 23:59 ==
LOC: LAB.DROPOF 15:33
PROVIDERS: PCP Internal Medicine; Visit Provider Internal Medicine
DX: Z79.899 Other long term (current) drug therapy (principal); E11.9 Type 2 diabetes mellitus without complications; E05.90 Thyrotoxicosis, unspecified without thyrotoxic crisis or storm; E78.5 Hyperlipidemia, unspecified
CPT/HCPCS: 80061; 80307; 82043; 82570; 83036; 84443

== ENCOUNTER 2023-12-14 12:20 | Outpatient (CLI) | payer MEDICARE, SELFPAY ==
[2023-12-14 12:39] LABS: Chol/HDL Ratio 5.2 (1-3.5); Cholesterol 129 mg/dl (140-200); HDL Cholesterol 25 mg/dl (40-60); Triglycerides 130 mg/dl (30-150); VLDL Cholesterol 26 mg/dL (0-40)
[2023-12-14 13:10] LABS: Prostate Specific Ag Screen 0.7 ng/ml (0.0-4.0)
== END 2023-12-14 23:59 ==
LOC: LAB.DROPOF 12:21
PROVIDERS: PCP Internal Medicine; Visit Provider Internal Medicine
DX: Z12.5 Encounter for screening for malignant neoplasm of prostate (principal); E78.00 Pure hypercholesterolemia, unspecified
CPT/HCPCS: 80061; G0103

== ENCOUNTER 2024-01-06 11:41 | Outpatient (CLI) | payer MEDICARE, SELFPAY ==
[2024-01-06 12:04] LABS: Basophils # 0.1 K/mm3 (0-0.2); Basophils % 0.9 % (0.1-2.0); Eosinophils # 0.2 K/mm3 (0.0-0.4); Eosinophils % 2.2 % (0.1-12.0); Hematocrit 50.4 % (42.0-52.0); Lymphocytes # 1.9 K/mm3 (0.7-4.5); Lymphocytes % 20.3 % (10-50); Mean Corpuscular HGB Conc 31.8 g/dL (31.8-35.4); Mean Corpuscular Hemoglobin 31.5 pg (27.0-31.2); Mean Platelet Volume 9.2 fl (7.4-10.4); Monocytes # 0.6 K/mm3 (0.1-1.0); Monocytes % 6.1 % (1.7-9.3); Neutrophils # 6.5 K/mm3 (1.8-7.8); Neutrophils % 70.6 % (37.0-80.0); Platelet Count 185 K/mm3 (142-424); Red Blood Count 5.09 M/mm3 (4.60-6.20); Red Cell Distribution Width 13.7 % (11.5-17.5); White Blood Count 9.3 K/mm3 (4.8-10.8)
== END 2024-01-06 23:59 ==
LOC: LAB.DROPOF 11:42
PROVIDERS: PCP Internal Medicine; Visit Provider Internal Medicine
DX: E78.5 Hyperlipidemia, unspecified (principal); R73.9 Hyperglycemia, unspecified
CPT/HCPCS: 83036; 85025

== ENCOUNTER 2024-04-28 14:54 | Emergency (ER) | payer MEDICARE, SELFPAY ==
[2024-04-28] VITALS (16 sets, daily range): BP systolic 128–166; BP diastolic 66–89; PULSE 70–78; RESP 12–20; TEMP 36.9; O2SAT 94–98; BMI 35.8; BMI 35.9
--- NOTE | 2024-04-28 14:54 | ECG_ITS ---
APPROVED REPORT Exam: Resting ECG HR:72 bpm ECG Measurements Heart Rate 72 AXES AZ 199 P 115 QRSd 155 QRS 107 QT 443 T -66 QTc 467 Conclusion ELECTRONIC ATRIAL PACEMAKER ELECTRONIC VENTRICULAR PACEMAKER Sgarbossa negative T wave inversions versus electrical repolarization abnormality in 2, 3, aVF Electronically signed by : AZAEL HUMPHRIES, 04/28/2024 20:44:22
--- NOTE | 2024-04-28 15:15 | [facility].EDCP ---
Discharge Plan Disposition Patient Disposition: Home, Self-Care Prescriptions Prescriptions: No Action clonazepam 0.5 mg tablet 0.5 mg PO BID 30 Days Qty: 60 0RF gabapentin 600 mg tablet See Rx Instructions .ROUTE .COMPLEX Qty: 60 0RF Dose Instruction: TAKE 1 TABLET BY MOUTH TWO TIMES A DAY Rx Instructions: TAKE 1 TABLET BY MOUTH TWO TIMES A DAY albuterol sulfate 90 mcg/actuation HFA aerosol inhaler 2 inh inhalation QID PRN (Reason: shortness of breath or wheezing) 90 Days Qty: 8.5 2RF bupropion HCl 300 mg tablet extended release 24 hr 300 mg PO DAILY 90 Days Qty: 90 2RF aspirin 81 mg tablet,chewable 81 mg PO DAILY Qty: 90 4RF atorvastatin 10 mg tablet 10 mg PO DAILY 90 Days Qty: 90 4RF bisoprolol fumarate 10 mg tablet 10 mg PO DAILY 90 Days Qty: 90 4RF lisinopril 40 mg tablet 40 mg PO BID 90 Days Qty: 180 4RF quetiapine [Seroquel] 25 mg tablet 25 mg PO HS 30 Days Qty: 30 3RF Referrals Follow up/Referrals: Provider,Referral, MD [Referring] - See instructions Activity Restrictions/Add. Instructions Additional Instructions/Restrictions: Call and make an appointment for follow-up with Dr. Smith's office. Follow-up with your PCP as scheduled. Return to the ER for any worsening signs or symptoms as needed Clinical Impressions Clinical Impression: Chest pain Qualifiers: Chest pain type: unspecified Qualified Code(s): R07.9 - Chest pain, unspecified Instructions Patient Instructions: DI for Chronic Pain -- Adult Discharge ED Provider: Sandeep Otero HPI <SARITA Muñoz - Last Filed: 04/28/24 18:59> General Chief Complaint: Chest Pain Stated Complaint: cp Time Seen by Provider: 04/28/24 14:57 History of Present Illness HPI narrative: Patient presents for evaluation of chest pain. Patient states that he began having intermittent chest pain starting around midnight last night. Patient states it is located around his pacemaker and goes up into his left shoulder. He denies diaphoresis nausea vomiting diarrhea fever chills hemoptysis hematochezia melena. Patient is still daily smoker and does have a significant cardiovascular history with multiple stents. He is followed with Dr. Smith's office. Related Data Previous Rx's Medication Instructions Recorded albuterol sulfate 90 mcg/actuation 2 inh inhalation QID PRN shortness 12/31/23 aerosol inhaler of breath or wheezing 90 days #8.5 grams aspirin 81 mg chewable tablet 81 mg PO DAILY Blood thinner #90 02/02/24 tabs atorvastatin 10 mg tablet 10 mg PO DAILY 90 days #90 tabs 02/02/24 bisoprolol fumarate 10 mg tablet 10 mg PO DAILY 90 days #90 tabs 02/02/24 bupropion HCl 300 mg 24 hr tablet, 300 mg PO DAILY 90 days #90 tabs 02/02/24 extended release lisinopril 40 mg tablet 40 mg PO BID 90 days #180 tabs 02/02/24 quetiapine 25 mg tablet (Seroquel) 25 mg PO HS 30 days #30 tabs 02/02/24 clonazepam 0.5 mg tablet 0.5 mg PO BID 30 days #60 tabs 04/07/24 gabapentin 600 mg tablet See Rx Instructions .Route 04/07/24 .COMPLEX #60 tabs Allergies Allergy/AdvReac Type Severity Reaction Status Date / Time No Known Allergies Allergy Verified 04/07/24 14:57 [facility] <SARITA Muñoz - Last Filed: 04/28/24 18:59> [facility] Disclaimer: The information contained in this section may have been updated after the patient was seen, as this information can be updated by other users. Medical History Smoking greater than 30 pack years Dyspnea on exertion Encounter for screening for malignant neoplasm of lung Pulmonary emphysema Pacemaker at end of battery life Atrial fibrillation Pacemaker Following with cardiology and had this recently evaluated. Tobacco abuse Strongly encouraged to quit smoking. HLD (hyperlipidemia) Lipid panel done December 14 reveals a triglyceride 130 total cholesterol 129 LDL of 76 and HDL of 25. This is not a bad panel at all and patient is only on 10 mg of atorvastatin. He is being followed by cardiology. SOB (shortness of breath) HHD (hypertensive heart disease) CAD (coronary artery disease) Surgical History History of heart artery stent Family History Other Asthma COPD (chronic obstructive pulmonary disease) Cancer Diabetes Heart attack Hypertension Stroke Social History Smoking Status: Never smoker alcohol intake: never substance use type: denies use current occupational status: other Travel in the last 8 weeks: None <SARITA Muñoz - Last Filed: 04/28/24 18:59> ROS Obtained: Yes Systems reviewed as appropriate & no additional complaints except as documented Physical Exam <SARITA Muñoz - Last Filed: 04/28/24 18:59> General General appearance: alert and in no apparent distress Chest Chest inspection: Present normal inspection, symmetric chest wall rise and tenderness (Tender to palpation around his pacemaker superiorly without evidence of erythema induration or signs of skin breakdown) Respiratory Respiratory exam: Present normal lung sounds bilaterally; Absent respiratory distress or wheezes Cardiovascular Cardiovascular exam: Present Pacemaker w/paced rhythm Abdominal Exam Abdominal exam: Present soft and normal bowel sounds; Absent tenderness Extremities Exam Extremities exam: Present normal inspection and full ROM Back Exam Back exam: Present normal inspection and full ROM; Absent tenderness Neurological Exam Neurological exam: Present alert, oriented X3 and CN II-XII intact Skin Skin exam: Present warm, dry, intact and normal color HEART Score <SARITA Muñoz - Last Filed: 04/28/24 18:59> HEART Score HEART Score assessment performed?: Yes History (anamnesis): Slightly suspicious ECG: Non-specific disturbance Age: >65 years Risk factors: Atherosclerosis history Troponin: </= normal limit HEART Score: 5 <Sandeep Otero MD - Last Filed: 04/28/24 20:27> HEART Score HEART Score: 5 Critical Care <SARITA Muñoz - Last Filed: 04/28/24 18:59> Critical Care Time Critical Care Time: No Medical Decision Making <SARITA Muñoz - Last Filed: 04/28/24 18:59> Medical Records Medical records reviewed: Yes I reviewed the patient's medical records. Hussain Inquiry Pt receiving controlled substance: No Vital Signs Vital Signs: 04/28/24 15:00 04/28/24 15:00 04/28/24 15:31 Temperature 98.5 F Temperature Source Oral Pulse Rate 70 70 Pulse Rate [Left Radial] 78 Respiratory Rate 17 18 13 Blood Pressure 166/89 H 166/87 H Blood Pressure [Right Arm] 139/70 Blood Pressure Mean [Right Arm] 93 02 Sat by Pulse Oximetry 97 97 96 Oxygen Delivery Method 04/28/24 16:01 04/28/24 16:30 04/28/24 17:00 Temperature Temperature Source Pulse Rate 70 70 70 Pulse Rate [Left Radial] Respiratory Rate 12 13 12 Blood Pressure 128/73 151/76 H 151/69 H Blood Pressure [Right Arm] Blood Pressure Mean [Right Arm] 02 Sat by Pulse Oximetry 95 95 97 Oxygen Delivery Method Room Air Room Air 04/28/24 17:22 04/28/24 17:23 04/28/24 17:28 Temperature Temperature Source Pulse Rate 74 70 71 Pulse Rate [Left Radial] Respiratory Rate 12 12 18 Blood Pressure 152/80 H 151/89 H 138/66 Blood Pressure [Right Arm] Blood Pressure Mean [Right Arm] 02 Sat by Pulse Oximetry 96 96 96 Oxygen Delivery Method Room Air Room Air Room Air 04/28/24 17:30 04/28/24 17:36 04/28/24 17:37 Temperature Temperature Source Pulse Rate 71 71 71 Pulse Rate [Left Radial] Respiratory Rate 17 16 16 Blood Pressure 142/76 H 159/81 H 152/78 H Blood Pressure [Right Arm] Blood Pressure Mean [Right Arm] 02 Sat by Pulse Oximetry 98 97 96 Oxygen Delivery Method Room Air 04/28/24 17:40 04/28/24 17:56 04/28/24 18:01 Temperature Temperature Source Pulse Rate 73 72 70 Pulse Rate [Left Radial] Respiratory Rate 14 14 15 Blood Pressure 148/86 H 150/70 H 145/87 H Blood Pressure [Right Arm] Blood Pressure Mean [Right Arm] 02 Sat by Pulse Oximetry 97 97 97 Oxygen Delivery Method Room Air Room Air Room Air 04/28/24 18:31 04/28/24 19:07 Temperature 98.5 F Temperature Source Oral Pulse Rate 70 70 Pulse Rate [Left Radial] Respiratory Rate 13 20 Blood Pressure 136/89 136/89 Blood Pressure [Right Arm] Blood Pressure Mean [Right Arm] 02 Sat by Pulse Oximetry 96 Oxygen Delivery Method Room Air Room Air Lab Data Lab results reviewed: Yes I reviewed the patient's lab results. Labs: Lab Results 04/28/24 15:00: WBC 10.2, RBC 4.97, Hgb 16.1, Hct 49.1, MCV 98.8 H, MCH 32.5 H, MCHC 32.9, RDW 14.5, Plt Count 235, MPV 9.1, Neut % (Auto) 74.2, Lymph % (Auto) 18.0, [place] % (Auto) 5.5, Eos % (Auto) 1.3, Baso % (Auto) 1.0, Neut # (Auto) 7.6, Lymph # (Auto) 1.9, [place] # (Auto) 0.6, Eos # (Auto) 0.1, Baso # (Auto) 0.1, Sodium 140, Potassium 4.5, Chloride 107, Carbon Dioxide 27, Anion Gap 10.5, BUN 26 H, Creatinine 1.60 H, Estimated GFR 43 L, Est GFR ( Amer) 53 L, Glucose 127 H, Calcium 9.7, Magnesium 2.1, Total Bilirubin 0.6, AST 31, ALT 26, Alkaline Phosphatase 62, Troponin I 0.02, Total Protein 8.0, Albumin 4.6, Globulin 3.4 H, Albumin/Globulin Ratio 1.4, Procalcitonin 0.194 04/28/24 15:47: VBG pH 7.38, VBG pCO2 39.0, VBG pO2 34.9, VBG HCO3 22.3 L, VBG Total CO2 23.5, VBG O2 Saturation 72.6 H, VBG Base Excess -2.8 L, VBG Lactic Acid 1.1 04/28/24 17:59: Troponin I 0.02 04/28/24 15:00 04/28/24 15:00 Response Orders (Tests/Meds): ED MEDICATIONS Discontinued Medications Generic Name Dose Route Start Last Admin Trade Name Boyd PRN Reason Stop Dose Admin Acetaminophen 1,000 mg 04/28/24 15:24 04/28/24 16:10 Acetaminophen 1,000mg/100ml Vial IV 04/28/24 15:25 1,000 mg ONCE ONE Administration Ketorolac Tromethamine 15 mg 04/28/24 15:24 04/28/24 16:10 Ketorolac 30mg/Ml Vial IV 04/28/24 15:25 15 mg ONCE ONE Administration Ondansetron HCl 4 mg 04/28/24 15:24 04/28/24 16:11 Ondansetron 4mg/2ml Vial IV 04/28/24 15:25 4 mg ONCE ONE Administration ORDERS Category Date Time Status Chest XR -- portable [XR chest portable] Stat Exams 04/28/24 15:24 Completed CBC w/Auto Diff [Complete Blood Count Auto Diff] Stat Lab 04/28/24 15:00 Completed CMP [Comprehensive Metabolic Panel] Stat Lab 04/28/24 15:00 Completed Magnesium Stat Lab 04/28/24 15:00 Completed Procalcitonin Stat Lab 04/28/24 15:00 Completed Trop I [Troponin I] Stat Lab 04/28/24 15:00 Completed Troponin I Q3H Lab 04/28/24 17:59 Completed Troponin I Q3H Lab 04/28/24 21:30 Ordered VBG [Venous Blood Gas] Stat RT 04/28/24 15:47 Completed MDM Narrative Medical Decision Narrative: In summary patient is a 68-year-old male who presents to the emergency department for evaluation of chest pain. Patient is hemodynamically stable upon arrival, afebrile. Physical exam is remarkable for tenderness to palpation in the left upper anterior chest around and above the pacemaker site however there is no evidence of induration or fluctuance skin breakdown etc. Breath sounds are clear and equal bilaterally normal heart sounds. Differential diagnosis includes ACS versus COPD versus musculoskeletal cause. Initial workup will be conducted with hematologic labs plain film chest x-ray. Initial interventions include Toradol Tylenol. Initial workup reviewed by me and his hematologic labs are nonactionable including a negative troponin. Upon repeat evaluation patient still reports intermittent symptoms. The patient was placed in observation status at 1630. Medical necessity for observational status is serial troponins. The patient was provided serial reevaluations and continuous cardiac monitoring and pulse oximetry while awaiting results. Patient's second troponin is identical to the first and negative. Because of these results open after discussion with the patient he feels comfortable going home with close follow-up with cardiology. Total time in observation was 3 hours. <Sandeep Otero MD - Last Filed: 04/28/24 20:27> Vital Signs Vital Signs: 04/28/24 15:00 04/28/24 15:00 04/28/24 15:31 Temperature 98.5 F Temperature Source Oral Pulse Rate 70 70 Pulse Rate [Left Radial] 78 Respiratory Rate 17 18 13 Blood Pressure 166/89 H 166/87 H Blood Pressure [Right Arm] 139/70 Blood Pressure Mean [Right Arm] 93 02 Sat by Pulse Oximetry 97 97 96 Oxygen Delivery Method 04/28/24 16:01 04/28/24 16:30 04/28/24 17:00 Temperature Temperature Source Pulse Rate 70 70 70 Pulse Rate [Left Radial] Respiratory Rate 12 13 12 Blood Pressure 128/73 151/76 H 151/69 H Blood Pressure [Right Arm] Blood Pressure Mean [Right Arm] 02 Sat by Pulse Oximetry 95 95 97 Oxygen Delivery Method Room Air Room Air 04/28/24 17:22 04/28/24 17:23 04/28/24 17:28 Temperature Temperature Source Pulse Rate 74 70 71 Pulse Rate [Left Radial] Respiratory Rate 12 12 18 Blood Pressure 152/80 H 151/89 H 138/66 Blood Pressure [Right Arm] Blood Pressure Mean [Right Arm] 02 Sat by Pulse Oximetry 96 96 96 Oxygen Delivery Method Room Air Room Air Room Air 04/28/24 17:30 04/28/24 17:36 04/28/24 17:37 Temperature Temperature Source Pulse Rate 71 71 71 Pulse Rate [Left Radial] Respiratory Rate 17 16 16 Blood Pressure 142/76 H 159/81 H 152/78 H Blood Pressure [Right Arm] Blood Pressure Mean [Right Arm] 02 Sat by Pulse Oximetry 98 97 96 Oxygen Delivery Method Room Air 04/28/24 17:40 04/28/24 17:56 04/28/24 18:01 Temperature Temperature Source Pulse Rate 73 72 70 Pulse Rate [Left Radial] Respiratory Rate 14 14 15 Blood Pressure 148/86 H 150/70 H 145/87 H Blood Pressure [Right Arm] Blood Pressure Mean [Right Arm] 02 Sat by Pulse Oximetry 97 97 97 Oxygen Delivery Method Room Air Room Air Room Air 04/28/24 18:31 04/28/24 19:07 Temperature 98.5 F Temperature Source Oral Pulse Rate 70 70 Pulse Rate [Left Radial] Respiratory Rate 13 20 Blood Pressure 136/89 136/89 Blood Pressure [Right Arm] Blood Pressure Mean [Right Arm] 02 Sat by Pulse Oximetry 96 Oxygen Delivery Method Room Air Room Air Lab Data Labs: Lab Results 04/28/24 15:00: WBC 10.2, RBC 4.97, Hgb 16.1, Hct 49.1, MCV 98.8 H, MCH 32.5 H, MCHC 32.9, RDW 14.5, Plt Count 235, MPV 9.1, Neut % (Auto) 74.2, Lymph % (Auto) 18.0, [place] % (Auto) 5.5, Eos % (Auto) 1.3, Baso % (Auto) 1.0, Neut # (Auto) 7.6, Lymph # (Auto) 1.9, [place] # (Auto) 0.6, Eos # (Auto) 0.1, Baso # (Auto) 0.1, Sodium 140, Potassium 4.5, Chloride 107, Carbon Dioxide 27, Anion Gap 10.5, BUN 26 H, Creatinine 1.60 H, Estimated GFR 43 L, Est GFR ( Amer) 53 L, Glucose 127 H, Calcium 9.7, Magnesium 2.1, Total Bilirubin 0.6, AST 31, ALT 26, Alkaline Phosphatase 62, Troponin I 0.02, Total Protein 8.0, Albumin 4.6, Globulin 3.4 H, Albumin/Globulin Ratio 1.4, Procalcitonin 0.194 04/28/24 15:47: VBG pH 7.38, VBG pCO2 39.0, VBG pO2 34.9, VBG HCO3 22.3 L, VBG Total CO2 23.5, VBG O2 Saturation 72.6 H, VBG Base Excess -2.8 L, VBG Lactic Acid 1.1 04/28/24 17:59: Troponin I 0.02 Response Orders (Tests/Meds): ED MEDICATIONS Discontinued Medications Generic Name Dose Route Start Last Admin Trade Name Uzairq PRN Reason Stop Dose Admin Acetaminophen 1,000 mg 04/28/24 15:24 04/28/24 16:10 Acetaminophen 1,000mg/100ml Vial IV 04/28/24 15:25 1,000 mg ONCE ONE Administration Ketorolac Tromethamine 15 mg 04/28/24 15:24 04/28/24 16:10 Ketorolac 30mg/Ml Vial IV 04/28/24 15:25 15 mg ONCE ONE Administration Ondansetron HCl 4 mg 04/28/24 15:24 04/28/24 16:11 Ondansetron 4mg/2ml Vial IV 04/28/24 15:25 4 mg ONCE ONE Administration ORDERS Category Date Time Status Chest XR -- portable [XR chest portable] Stat Exams 04/28/24 15:24 Completed CBC w/Auto Diff [Complete Blood Count Auto Diff] Stat Lab 04/28/24 15:00 Completed CMP [Comprehensive Metabolic Panel] Stat Lab 04/28/24 15:00 Completed Magnesium Stat Lab 04/28/24 15:00 Completed Procalcitonin Stat Lab 04/28/24 15:00 Completed Trop I [Troponin I] Stat Lab 04/28/24 15:00 Completed Troponin I Q3H Lab 04/28/24 17:59 Completed Troponin I Q3H Lab 04/28/24 21:30 Ordered VBG [Venous Blood Gas] Stat RT 04/28/24 15:47 Completed ECG Data Tracing #1: Attestation: I reviewed this ECG and interpreted as documented below: ECG Narrative: AV paced rhythm approximately 70 beats minute. T wave inversions versus repolarization abnormality in 2, 3, aVF. [place] interval 199, QRS 155 QTc 467. Sgarbossa negative. MDM Narrative Medical Decision Narrative: In summary patient is a 68-year-old male who presents to the emergency department for evaluation of chest pain. Patient is hemodynamically stable upon arrival, afebrile. Physical exam is remarkable for tenderness to palpation in the left upper anterior chest around and above the pacemaker site however there is no evidence of induration or fluctuance skin breakdown etc. Breath sounds are clear and equal bilaterally normal heart sounds. Differential diagnosis includes ACS versus COPD versus musculoskeletal cause. Initial workup will be conducted with hematologic labs plain film chest x-ray. Initial interventions include Toradol Tylenol. Initial workup reviewed by me and his hematologic labs are nonactionable including a negative troponin. Upon repeat evaluation patient still reports intermittent symptoms. The patient was placed in observation status at 1630. Medical necessity for observational status is serial troponins. The patient was provided serial reevaluations and continuous cardiac monitoring and pulse oximetry while awaiting results. Patient's second troponin is identical to the first and negative. Because of these results open after discussion with the patient he feels comfortable going home with close follow-up with cardiology. Total time in observation was 3 hours. I was consulted by the ALETA, and we discussed the complexity of the problems being addressed. I approved the treatment and management plan for this patient?s care in the Emergency Department, thus performing a substantive portion of the medical decision making. Sandeep Otero MD
--- NOTE | 2024-04-28 15:24 | XR_ITS ---
FINAL REPORT CLINICAL HISTORY: Chest pain FINDINGS: A single portable view of the chest was obtained. Cardiomegaly is noted. There is a left subclavian ICD. The pulmonary vascularity is within normal limits. Mild right lung base opacities are seen, favor atelectasis over pneumonia. The left lung is clear. The bony thorax is intact. IMPRESSION: Cardiomegaly. Mild right lung base opacities, favor atelectasis over pneumonia. Authenticated and ERN
[2024-04-28 15:35] LABS: Basophils # 0.1 K/mm3 (0-0.2); Eosinophils # 0.1 K/mm3 (0.0-0.4); Eosinophils % 1.3 % (0.1-12.0); Hematocrit 49.1 % (42.0-52.0); Hemoglobin 16.1 g/dL (14.1-18.0); Lymphocytes # 1.9 K/mm3 (0.7-4.5); Mean Corpuscular HGB Conc 32.9 g/dL (31.8-35.4); Mean Corpuscular Hemoglobin 32.5 pg (27.0-31.2); Mean Corpuscular Volume 98.8 fl (80-94); Mean Platelet Volume 9.1 fl (7.4-10.4); Monocytes # 0.6 K/mm3 (0.1-1.0); Monocytes % 5.5 % (1.7-9.3); Neutrophils # 7.6 K/mm3 (1.8-7.8); Neutrophils % 74.2 % (37.0-80.0); Platelet Count 235 K/mm3 (142-424); Red Blood Count 4.97 M/mm3 (4.60-6.20); Red Cell Distribution Width 14.5 % (11.5-17.5); White Blood Count 10.2 K/mm3 (4.8-10.8)
[2024-04-28 15:38] LABS: Chloride 107 mmol/L (98-107); Potassium 4.5 mmoL/L (3.5-5.1); Sodium 140 mmol/L (136-145)
[2024-04-28 15:40] LABS: Blood Urea Nitrogen 26 mg/dl (9-20); Estimated Glomerular Filt Rate 43 ml/min (>60); GFR (African American) 53 ML/MIN (>60)
[2024-04-28 15:41] LABS: Alanine Aminotransferase 26 U/L (12-78); Albumin Level 4.6 g/dl (3.5-5.0); Albumin/Globulin Ratio 1.4 (1.1-1.8); Alkaline Phosphatase 62 U/L (38-126); Anion Gap 10.5 mEq/L (5-15); Aspartate Amino Transferase 31 U/L (17-59); Bilirubin,Total 0.6 mg/dl (0.2-1.3); Calcium 9.7 mg/dl (8.4-10.2); Carbon Dioxide 27 mmol/L (22.0-30.0); Globulin 3.4 g/dL (1.3-3.2); Glucose 127 mg/dl (74-100); Magnesium 2.1 mg/dl (1.6-2.3)
[2024-04-28 15:54] LABS: Troponin I 0.02 ng/ml (0.00-0.034)
[2024-04-28 15:55] LABS: Lactate Venous 1.1 mmol/L (0.4-2.0); VBG Base Excess -2.8 mmol/L (-2.4-2.3); VBG HCO3 22.3 mmol/L (23-30); VBG Oxygen Saturation 72.6 % (50-70); VBG PH 7.38 mmol/L (7.31-7.41); VBG PO2 34.9 mmol/L (28-40); VBG Total CO2 23.5 mmol/L (23-27)
[2024-04-28] MEDS: ACETAMINOPHEN 1,000MG/100ML VIAL 1000 MG IV (16:10)
[2024-04-28] MEDS: KETOROLAC 30MG/ML VIAL 15 MG IV (16:10)
[2024-04-28] MEDS: ONDANSETRON 4MG/2ML VIAL 4 MG IV (16:11)
[2024-04-28 16:33] LABS: Procalcitonin 0.194 ng/mL (0.0-2.0)
[2024-04-28 18:26] LABS: Troponin I 0.02 ng/ml (0.00-0.034)
== END 2024-04-28 19:10 | disposition home or self-care (01) ==
PROVIDERS: Physician Assistant; Emergency Provider Emergency Medicine; PCP Internal Medicine
DX: R07.9 Chest pain, unspecified (principal); Z95.0 Presence of cardiac pacemaker; F17.210 Nicotine dependence, cigarettes, uncomplicated; J43.9 Emphysema, unspecified; I11.9 Hypertensive heart disease without heart failure; I25.10 Atherosclerotic heart disease of native coronary artery without angina pectoris; Z95.5 Presence of coronary angioplasty implant and graft; E78.5 Hyperlipidemia, unspecified
CPT/HCPCS: 71045; 80053; 82803; 83735; 84145; 84484; 85025; 93005; 96374; 96375; 99285; J0131; J1885; J2405

== ENCOUNTER 2024-05-31 10:28 | Outpatient (CLI) | payer MEDICARE, SELFPAY ==
[2024-05-31 10:45] LABS: Basophils # 0.1 K/mm3 (0-0.2); Basophils % 0.5 % (0.1-2.0); Eosinophils # 0.2 K/mm3 (0.0-0.4); Eosinophils % 1.3 % (0.1-12.0); Hematocrit 48.4 % (42.0-52.0); Hemoglobin 15.8 g/dL (14.1-18.0); Lymphocytes # 1.8 K/mm3 (0.7-4.5); Lymphocytes % 14.9 % (10-50); Mean Corpuscular HGB Conc 32.6 g/dL (31.8-35.4); Mean Corpuscular Hemoglobin 32.4 pg (27.0-31.2); Mean Corpuscular Volume 99.5 fl (80-94); Mean Platelet Volume 8.7 fl (7.4-10.4); Monocytes # 0.7 K/mm3 (0.1-1.0); Monocytes % 5.9 % (1.7-9.3); Neutrophils # 9.2 K/mm3 (1.8-7.8); Neutrophils % 77.3 % (37.0-80.0); Platelet Count 210 K/mm3 (142-424); Red Blood Count 4.87 M/mm3 (4.60-6.20); Red Cell Distribution Width 14.1 % (11.5-17.5); White Blood Count 11.9 K/mm3 (4.8-10.8)
[2024-05-31 11:05] LABS: Albumin Level 4.2 g/dl (3.5-5.0); Chloride 109 mmol/L (98-107); Potassium 4.5 mmoL/L (3.5-5.1); Sodium 139 mmol/L (136-145)
[2024-05-31 11:07] LABS: Blood Urea Nitrogen 23 mg/dl (9-20); Estimated Glomerular Filt Rate 47 ml/min (>60); GFR (African American) 57 ML/MIN (>60)
[2024-05-31 11:08] LABS: Alanine Aminotransferase 22 U/L (12-78); Alkaline Phosphatase 60 U/L (38-126); Anion Gap 10.5 mEq/L (5-15); Aspartate Amino Transferase 29 U/L (17-59); Bilirubin,Direct 0.3 mg/dl (0.0-0.4); Bilirubin,Indirect 0.5 mg/dL (0.0-0.9); Bilirubin,Total 0.8 mg/dl (0.2-1.3); Bilirubin,Unconjugated 0.5 mg/dL (0.0-1.1); Calcium 8.8 mg/dl (8.4-10.2); Carbon Dioxide 24 mmol/L (22.0-30.0); Cholesterol 169 mg/dl (140-200); Glucose 104 mg/dl (74-100); Magnesium 1.8 mg/dl (1.6-2.3); Triglycerides 228 mg/dl (30-150); VLDL Cholesterol 46 mg/dL (0-40)
[2024-05-31 11:09] LABS: Chol/HDL Ratio 5.8 (1-3.5); HDL Cholesterol 29 mg/dl (40-60)
[2024-05-31 11:19] LABS: Direct LDL Cholesterol 89.27 mg/dL (100-129)
[2024-05-31 11:22] LABS: Free T4 (Free Thyroxine) 1.32 ng/dl (0.78-2.19)
== END 2024-05-31 23:59 | disposition home or self-care (01) ==
LOC: LAB 10:29
PROVIDERS: PCP Internal Medicine; Visit Provider Physician Assistant
DX: E78.2 Mixed hyperlipidemia (principal); I11.0 Hypertensive heart disease with heart failure; I25.119 Atherosclerotic heart disease of native coronary artery with unspecified angina pectoris; I50.20 Unspecified systolic (congestive) heart failure; R07.9 Chest pain, unspecified; R06.09 Other forms of dyspnea; I42.9 Cardiomyopathy, unspecified; I48.0 Paroxysmal atrial fibrillation; I73.9 Peripheral vascular disease, unspecified; Z95.0 Presence of cardiac pacemaker
CPT/HCPCS: 36415; 80048; 80061; 80076; 83735; 84439; 84443; 85025

== ENCOUNTER 2024-06-14 08:39 | Day surgery (SDC) | payer MEDICARE, SELFPAY ==
[2024-06-14] VITALS (16 sets, daily range): BP systolic 154–205; BP diastolic 62–117; PULSE 64–90; RESP 15–20; TEMP 36.7–36.8; O2SAT 94–97; BMI 27.8
--- NOTE | 2024-06-14 07:24 | IR_ITS ---
APPROVED REPORT Patient Location: [facility] Manager: JULIO C Velasco RT (R) PROCEDURES Selective coronary angiogram Drug-eluting stent deployment to the proximal and mid dominant circumflex artery INDICATION Ischemic cardiomyopathy, Angina pectoris, Coronary artery disease, Informed consent was obtained prior to the procedure. COMPLICATIONS None Estimated Blood Loss: Less than 10 mls TECHNIQUE One percent lidocaine used to anesthetize the right anterior aspect of the wrist. The right radial artery was accessed via the Seldinger technique. A 6 Amharic sheath was placed in the right radial artery. 2.5 mg of Verapamil, 800 mcg of nitroglycerin, 1mg Lidocaine and 5000 U Heparin were given through the arterial sheath. The papa catheter was also used to perform selective coronary angiogram. At the end of the diagnostic angiogram therapeutic Was administered giving a therapeutic ACT and the guide catheter was placed in left main artery with wire placed down the LAD and one of the circumflex artery. A 3 mm x 38 mm Olaf frontier stent was placed in the proximal and mid right coronary artery and deployed at 20 claudette. An additional 2.75 x 12 mm [place] frontier stent was placed distal to the first stent yet still overlapping and deployed to 20 claudette reducing the stenosis. The balloon was brought back and deployed at 24 claudette in the proximal portion of the 3.0 mm stent in order to post dilate. HEBERT-3 flow was present before and after the procedure. At the end the procedure the apparatus was removed the sheath was removed and hemostasis was achieved using TR banding patient was transferred to the postop putting in stable addition ANGIOGRAPHIC RESULTS The left main artery Normal The left anterior descending artery Has stents in the proximal to mid segment which are widely patent with mild in-stent restenosis. The distal LAD is subtotally occluded large ramus intermedius has proximal and mid vessel 30% stenoses representing in-stent restenosis within open otherwise widely patent stent The circumflex artery Is dominant and has proximal 50 and mid vessel 70% stenosis with the distal eccentric 70 to 80% stenosis proximal to 2 large obtuse marginal arteries The right coronary artery Has proximal 10 to 20% stenosis with stents in the mid segment which have 40% concentric in-stent restenosis The KUMAR ventriculogram reveals Not performed The left ventricular end-diastolic pressure Not measured IMPRESSION Coronary artery disease as described above Successful stenting of the proximal to mid circumflex artery severe disease reduced to 0% with 2 contiguous drug-eluting stents PLAN 1. Dual antiplatelet therapy 2. Standard therapy for ischemic heart disease 3. Cardiac rehabilitation 4. LDL less than 55 to be to the 10 intensity statin 5. Avoidance of tobacco product Electronically signed by : Suresh Smith MD 06/14/2024 11:36:50
[2024-06-14 09:06] LABS: Basophils # 0.1 K/mm3 (0-0.2); Basophils % 0.8 % (0.1-2.0); Eosinophils # 0.4 K/mm3 (0.0-0.4); Eosinophils % 4.3 % (0.1-12.0); Hemoglobin 13.6 g/dL (14.1-18.0); Lymphocytes % 22.9 % (10-50); Mean Corpuscular HGB Conc 32.4 g/dL (31.8-35.4); Mean Corpuscular Hemoglobin 32.3 pg (27.0-31.2); Mean Corpuscular Volume 99.8 fl (80-94); Mean Platelet Volume 8.6 fl (7.4-10.4); Monocytes # 0.4 K/mm3 (0.1-1.0); Neutrophils # 5.9 K/mm3 (1.8-7.8); Neutrophils % 66.9 % (37.0-80.0); Platelet Count 191 K/mm3 (142-424); Red Blood Count 4.21 M/mm3 (4.60-6.20); Red Cell Distribution Width 14.4 % (11.5-17.5); White Blood Count 8.8 K/mm3 (4.8-10.8)
[2024-06-14 09:12] LABS: Chloride 104 mmol/L (98-107)
[2024-06-14 09:13] LABS: Potassium 4.5 mmoL/L (3.5-5.1); Sodium 140 mmol/L (136-145)
[2024-06-14 09:16] LABS: Anion Gap 8.5 mEq/L (5-15); Blood Urea Nitrogen 14 mg/dl (9-20); Calcium 8.9 mg/dl (8.4-10.2); Carbon Dioxide 32 mmol/L (22.0-30.0); Creatinine Clearance Estimated 87 mL/min (50-200); Estimated Glomerular Filt Rate 67 ml/min (>60); GFR (African American) 81 ML/MIN (>60); Glucose 93 mg/dl (74-100)
[2024-06-14] MEDS: diphenhydrAMINE 50MG/ML VIAL 50 MG IV (10:58)
[2024-06-14] MEDS: HEPARIN 1,000 UNITS/ML 10ML VIAL (CATH LAB) 10000 UNIT IV (10:59)
[2024-06-14] MEDS: HEPARIN 1,000 UNITS/500ML NS (CATH LAB) 3000 UNIT IV (10:59)
[2024-06-14] MEDS: VERAPAMIL 2.5MG/ML 2ML VIAL 2.5 MG IV (10:59)
[2024-06-14] MEDS: LIDOCAINE 1% 10ML MDV 20 ML IJ (10:59)
[2024-06-14] MEDS: 0.9 % SODIUM CHLORIDE 500 ML 25 ML IV (11:00)
[2024-06-14] MEDS: MIDAZOLAM HCL 1MG/1ML 5ML VIAL 1 MG IV (11:25)
[2024-06-14] MEDS: FENTANYL 100MCG/2ML VIAL 25 MCG IV (11:25)
[2024-06-14] MEDS: LABETALOL 20MG/4ML SYRINGE 20 MG IV ×2 (11:31→11:49)
[2024-06-14] MEDS: PRASUGREL 10MG TAB 60 MG PO (11:34)
[2024-06-14] MEDS: IOPAMIDOL-370 (76%);100ML BOTTLE 105 ML IV (13:20)
[2024-06-14 13:25] LABS: CATHL Activated Clotting Time > 400 SEC (74-125)
[2024-06-14] MEDS: CARVEDILOL 12.5MG TABLET 25 MG PO (14:09)
== END 2024-06-14 15:07 | disposition home or self-care (01) ==
LOC: CATHLAB 08:39
PROVIDERS: PCP Internal Medicine; Visit Provider Internal Medicine
DX: I50.20 Unspecified systolic (congestive) heart failure (principal); R07.9 Chest pain, unspecified; I70.203 Unspecified atherosclerosis of native arteries of extremities, bilateral legs; Z95.810 Presence of automatic (implantable) cardiac defibrillator; F17.210 Nicotine dependence, cigarettes, uncomplicated; I48.0 Paroxysmal atrial fibrillation; R06.02 Shortness of breath; E78.2 Mixed hyperlipidemia; I25.5 Ischemic cardiomyopathy; I25.118 Atherosclerotic heart disease of native coronary artery with other forms of angina pectoris; I11.0 Hypertensive heart disease with heart failure; Z79.899 Other long term (current) drug therapy; T82.855A Stenosis of coronary artery stent, initial encounter; Y83.1 Surgical operation with implant of artificial internal device as the cause of abnormal reaction of the patient, or of later complication, without mention of misadventure at the time of the procedure
CPT/HCPCS: 80048; 85025; 85347; 92928; 93458; 99152; C1725; C1769; C1874; C9600; J1200; J1644; J2250; J3010; Q9967

== ENCOUNTER 2024-09-21 09:30 | Outpatient (CLI) | payer MEDICARE, SELFPAY ==
[2024-09-21 17:59] LABS: Coronavirus 19, PCR Not Detected (NotDetected); Influenza A, PCR Not Detected (NotDetected); Influenza B, PCR Not Detected (NotDetected)
== END 2024-09-21 23:59 | disposition home or self-care (01) ==
LOC: LAB.DROPOF 09-22 09:48
PROVIDERS: PCP Internal Medicine; Visit Provider Internal Medicine
DX: R06.02 Shortness of breath (principal)
CPT/HCPCS: 87636

== ENCOUNTER 2024-11-15 11:47 | Outpatient (CLI) | payer MEDICARE, SELFPAY ==
[2024-11-15 18:25] LABS: Creatinine,Urine Random 282 mg/dL (Not Estab.)
[2024-11-15 19:00] LABS: Microalbumin/Creatinine Ratio 92.7
== END 2024-11-15 23:59 | disposition home or self-care (01) ==
LOC: LAB.DROPOF 11-16 11:48
PROVIDERS: PCP Internal Medicine; Visit Provider Internal Medicine
DX: I11.9 Hypertensive heart disease without heart failure (principal)
CPT/HCPCS: 82043; 82570

== ENCOUNTER 2025-02-10 11:44 | Outpatient (CLI) | payer MEDICARE, SELFPAY ==
[2025-02-09 19:09] LABS: Alanine Aminotransferase 20 U/L (12-78); Albumin/Globulin Ratio 1.5 (1.1-1.8); Alkaline Phosphatase 68 U/L (38-126); Anion Gap 11.9 mEq/L (5-15); Aspartate Amino Transferase 26 U/L (17-59); Bilirubin,Total 0.5 mg/dl (0.2-1.3); Blood Urea Nitrogen 22 mg/dl (9-20); Carbon Dioxide 27 mmol/L (22.0-30.0); Chloride 106 mmol/L (98-107); Chol/HDL Ratio 5.9 (1-3.5); Cholesterol 166 mg/dl (140-200); Estimated Glomerular Filt Rate 60 ml/min (>60); GFR (African American) 73 ML/MIN (>60); Globulin 2.7 g/dL (1.3-3.2); Glucose 95 mg/dl (74-100); HDL Cholesterol 28 mg/dl (40-60); Potassium 4.9 mmoL/L (3.5-5.1); Sodium 140 mmol/L (136-145); Total Protein,Serum 6.7 g/dl (6.3-8.2); Triglycerides 199 mg/dl (30-150); VLDL Cholesterol 40 mg/dL (0-40)
== END 2025-02-10 23:59 | disposition home or self-care (01) ==
LOC: LAB.DROPOF 11:45
PROVIDERS: PCP Family Medicine; Visit Provider Family Medicine
DX: I11.9 Hypertensive heart disease without heart failure (principal); E78.2 Mixed hyperlipidemia
CPT/HCPCS: 80053; 80061

== ENCOUNTER 2025-02-28 13:07 | Outpatient (CLI) | payer MEDICARE, SELFPAY ==
--- NOTE | 2025-02-28 13:45 | CT_ITS ---
FINAL REPORT TECHNIQUE: Axial CT images of the chest were obtained without contrast. Low-dose protocol was utilized. This study was performed with techniques to keep radiation doses as low as reasonably achievable (ALARA). Individualized dose reduction techniques using automated exposure control or adjustment of mA and/or kV according to the patient's size were employed. CLINICAL HISTORY: lung cancer screening FORMER SMOKER QUIT 9 MONTHS AGO, 1.5PPD X 50 YEARS COMPARISON: CT chest 05/30/2020 FINDINGS: CT CHEST WITHOUT, LOW DOSE SCREENING CT Di Vol: 2.90 mGy DLP: 109.68 mGy*cm There is streak artifact from pacemaker leads. There is no axillary, mediastinal, or hilar adenopathy. The heart size is normal. There is no pleural or pericardial effusion. The lung windows show no suspicious mass or nodule. Limited images of the upper abdomen demonstrate no acute findings. IMPRESSION: No suspicious mass or nodule. LR Category 1: 12 month follow-up low-dose chest CT is recommended per Fleischner criteria. Reviewed, Interpreted and Dictated by Ney Le MD Transcribed by Sylvia Duran Authenticated and [facility]
== END 2025-02-28 23:59 | disposition home or self-care (01) ==
LOC: RAD 13:07
PROVIDERS: PCP Family Medicine; Visit Provider Family Medicine
DX: F17.210 Nicotine dependence, cigarettes, uncomplicated (principal); Z12.2 Encounter for screening for malignant neoplasm of respiratory organs
CPT/HCPCS: 71271

== ENCOUNTER 2025-07-11 09:59 | Outpatient (CLI) | payer MEDICARE, SELFPAY ==
[2025-07-11 15:30] LABS: Hematocrit 40.8 % (42.0-52.0); Hemoglobin 13.3 g/dL (14.1-18.0); Immature Granulocytes % 0.2 %; Mean Corpuscular HGB Conc 32.6 g/dL (31.8-35.4); Mean Corpuscular Hemoglobin 30.7 pg (27.0-31.2); Mean Corpuscular Volume 94.2 fl (80-94); Nucleated Red Blood Cells % 0 %; Platelet Count 232 K/mm3 (142-424); Red Blood Count 4.33 M/mm3 (4.60-6.20); Red Cell Distribution Width-SD 45.5 fL; White Blood Count 8.3 K/mm3 (4.8-10.8)
[2025-07-11 16:01] LABS: Albumin Level 4.6 g/dl (3.5-5.0); Chloride 103 mmol/L (98-107); Potassium 5.0 mmoL/L (3.5-5.1); Sodium 140 mmol/L (136-145)
[2025-07-11 16:04] LABS: Alanine Aminotransferase 15 U/L (12-78); Albumin/Globulin Ratio 1.9 (1.1-1.8); Alkaline Phosphatase 61 U/L (38-126); Anion Gap 17.0 mEq/L (5-15); Aspartate Amino Transferase 27 U/L (17-59); Bilirubin,Total 0.8 mg/dl (0.2-1.3); Blood Urea Nitrogen 25 mg/dl (9-20); Calcium 9.0 mg/dl (8.4-10.2); Carbon Dioxide 25 mmol/L (22.0-30.0); Cholesterol 141 mg/dl (140-200); Creatinine,Serum 1.20 mg/dl (0.66-1.25); Estimated Glomerular Filt Rate 60 ml/min (>60); GFR (African American) 73 ML/MIN (>60); Globulin 2.4 g/dL (1.3-3.2); Glucose 118 mg/dl (74-100); HDL Cholesterol 27 mg/dl (40-60); Total Protein,Serum 7.0 g/dl (6.3-8.2); Triglycerides 161 mg/dl (30-150)
[2025-07-11 16:43] LABS: Hemoglobin A1C 6.0 % (4.0-6.0)
== END 2025-07-11 23:59 ==
LOC: LAB.DROPOF 07-12 09:46
PROVIDERS: PCP Student in an Organized Health Care Education/Training Program; Visit Provider Student in an Organized Health Care Education/Training Program
DX: E78.5 Hyperlipidemia, unspecified (principal); Z13.1 Encounter for screening for diabetes mellitus; R06.09 Other forms of dyspnea
CPT/HCPCS: 80053; 80061; 83036; 85025